=== PATIENT | female | born 1950 | race Caucasian/White ===

== ENCOUNTER 2018-07-06 12:21 | Inpatient (IN) | payer MEDICARE, OTHER ==
[~2018-07-06 12:21] MED LIST: Iopamidol 370 76% 100 ML VIAL ONE
[2018-07-06] MEDS ORDERED: PHENYLEPHRINE-NS 100 MCG/ML 10 ML SYRINGE ONE (12:37)
[2018-07-06] MEDS ORDERED: Lidocaine 1% PF 5 ML VIAL ONE (12:37)
[2018-07-06] MEDS ORDERED: PROPOFOL 200 MG/20 ML VIAL ONE (12:37)
[2018-07-06] MEDS ORDERED: Succinylcholine Chloride 20 MG/ML 10 ml SYRINGE FS ONE (12:37)
[2018-07-06 12:41] LABS: #Eosinphils 0.8 thou/uL (0.0-0.7); #Lymphocytes 1.8 thou/uL (1.20-3.40); #Monocytes 1.1 thou/uL (0.11-0.59); #Neutrophils 8.2 thou/uL (1.40-6.50); %Basophils 0.4 % (0.0-1.0); %Eosinophils 6.9 % (0.0-10.0); %Lymphocytes 15.2 % (21.0-51.0); %Monocytes 9.4 % (0.0-10.0); %Neutrophils 68.1 % (42.0-75.0); Hemoglobin 13.4 g/dL (12.0-16.0); Mean Corpuscular HGB CONC 32.5 g/dL (32.0-36.0); Mean Corpuscular Hemoglobin 29.2 pg (27.0-31.0); Mean Corpuscular Volume 89.9 fL (78.0-98.0); Mean Platelet Volume 6.3 fL (7.4-10.4); Platelet Count 199 thou/uL (130-400); RBC Distribution Width 12.4 % (11.5-14.5); White Blood Cell (WBC) Count 12.1 thou/uL (4.8-10.8)
[2018-07-06 12:45] LABS: INR-International Normal Ratio 1.1; PTT 23.2 SEC (22.9-36.1); Prothrombin Time 14.2 SEC (12.0-14.7)
[2018-07-06 13:05] LABS: ALT (SGPT) 33 U/L (8-55); AST (SGOT) 32 U/L (5-34); Alkaline Phosphatase 123 U/L (40-150); Anion Gap 13 mmol/L (10-20); BUN (Urea Nitrogen) 12 mg/dL (9.8-20.1); Bilirubin, Total 0.5 mg/dL (0.2-1.2); Calc. Creatinine Clearance 0 mL/min (70-130); Calcium 9.2 mg/dL (7.8-10.44); Carbon Dioxide 25 mmol/L (23-31); Chloride 104 mmol/L (98-107); Estimated GFR-MDRD 55; Globulin 3.5 g/dL (2.4-3.5); Glucose 110 mg/dL (80-115); Potassium 4.2 mmol/L (3.5-5.1); Protein, Total 7.5 g/dL (6.0-8.3); Sodium 138 mmol/L (136-145)
--- NOTE | 2018-07-06 13:16 | CT ---
BRAIN CT WITHOUT IV CONTRAST: Date: 07/06/18 HISTORY: 67-year-old female with history of stroke alert, left-sided paralysis, facial droop, slurred speech. FINDINGS: Minimal motion artifact. No focal mass or midline shift. No intra or extra-axial hemorrhage. IMPRESSION: Minimal motion artifact. Mild atrophy and chronic white matter ischemic change. No mass, bleed, or ot her acute process. Findings discussed with Dr. Kimball in the emergency room at 1235 hours. CODE CR. POS: [facility]
[2018-07-06] MEDS ORDERED: Heparin 10,000 UNITS/1 ML VIAL ONE (13:17)
[2018-07-06] MEDS ORDERED: Lidocaine 1% (PF) 30 ML VIAL ONE ×2 (13:17→13:26)
--- NOTE | 2018-07-06 13:36 | RAD ---
CHEST ONE VIEW: History: Altered mental status. Weakness. FINDINGS: No comparison. Cardiac silhouette is magnified by projection. Pulmonary vasculature upper limits of normal. Mediasti num is midline with aortic calcification. No lobar consolidation or evidence of pneumothorax. laboratory monitor leads overlie the chest. IMPRESSION: Atherosclerosis. POS: [facility]
--- NOTE | 2018-07-06 14:01 | CT ---
HEAD CT ANGIOGRAM WITH 3D RENDERING NECK CT ANGIOGRAM WITH 3D RENDERING: Date: 07/06/18 HISTORY: 67-year-old female with left-sided paralysis, facial droop, slurred speech. Last seen normal 45 minut es ago. FINDINGS: HEAD CT ANGIOGRAM: There is a major branch occlusion of one of the right M2 segment branches approximately 1.0 cm distal to the first trifurcation branch off the right middle cerebral artery. The vertebrobasilar system ap pears unremarkable. Left middle cerebral and anterior cerebral arteries are unremarkable. IMPRESSION: Major branch occlusion involving a right middle cerebral artery branch approximately 1.0 cm distal to the first trifurcation branch off the right middle cerebral artery. NECK CT ANGIGORAM: Right and left vertebral artery origins are unremarkable. No evidence for an acute artery significant stenosis or occlusion. Small calcified plaques involving the right distal common carotid artery and at the origin of the right internal carotid artery, but no hemodynamically significant stenosis using NASCET criteria. No evidence for neck soft tissue mass or abnormal fluid collection. IMPRESSION: Several small calcified plaques involving the distal right CCA and proximal right ICA, but no hemodyn amically significant stenosis using NASCET criteria. Unremarkable left carotid. Unremarkable vertebra l arteries bilaterally. Findings were discussed with Dr. Dayo Reeves at approximately 1310 hours. CODE CR. POS: [facility]
[2018-07-06] MEDS ORDERED: ISOVUE-370 76%-LOCM 1 ML ONE (14:09)
[2018-07-06] MEDS ORDERED: Communication Order-Pharmacy FS SCH (14:28)
--- NOTE | 2018-07-06 15:13 | PRG ---
DATE OF SERVICE: 07/06/2018. SUBJECTIVE: Ms. Kat is a 67-year-old female that experienced the abrupt onset of dense left hemipa resis with associated facial droop. She was brought to the ER where she underwent a noncontrast head CT, which was negative for hemorrhage. She was immediately given IV TPA. Subsequent to that time, she underwent CT angiography which revealed a branch occlusion of the distal aspect of the right midd le cerebral artery. There was paucity of blood flow within the deep white matter areas of the right cerebral hemisphere. The patient was then emergently taken to the laboratory chief where she underwent mechanical thrombectomy. M echanical thrombectomy was successful in opening up the branch occlusion. She appears to have normal samaritan of flow. The plan will be admission to the ICU. I have spoken to the Pulmonary and Cri tical Care team, will be working to wean her off the ventilator as soon as possible. I have also spo mark to the nurse who will be taken care of her. She has a sheath in place and that will need to kya in in place for at least 12 hours secondary to IV TPA administration. I have also consulted the Hosp italist Service, so they can resume medical management and appropriate stroke workup.
[2018-07-06] MEDS ORDERED: NICARDIPINE IVPB SCH (15:30)
[2018-07-06] MEDS ORDERED: NACL IVPB SCH (15:30)
[2018-07-06] MEDS ORDERED: niCARdipine 40MG In NaCl 40 MG/200 ML BAG IVPB SCH (15:45)
[2018-07-06 15:50] LABS: Actual Bicarbonate (HCO3a) 17.4 mEq/L (22-28); Base Excess (BEa) -5.9 mEq/L (-2.0 to +3.0); CO2 Tension 28.6 mmHg (35.0-45.0); Carboxyhemoglobin (COHb) 0.9 gm% (0.0-3.0); Hemoglobin (Hb) 13.1 g/dL (12.0-16.0); O2 Tension (PaO2) 108.8 mmHg (> 80.0)
[2018-07-06 15:51] LABS: Puncture Site ALINE
[2018-07-06] MEDS: niCARdipine HCl 25 MG in Sodium Chloride 0.9% 250 ML 240 ML IVPB SCH ×2 (16:02→20:15)
[2018-07-06] MEDS: Cefepime 1 GM in Sodium Chloride 0.9% 100 ML IVPB SCH (16:56)
--- NOTE | 2018-07-06 19:09 | PDOC.PN ---
- Subjective Encounter Start Date: 07/06/18 Encounter Start Time: 19:08 Pt seen for management of medical comorbidities, currently admitted for acute ischemic stroke. Pt intubated, able to answer questions by nodding or shaking head. Denies chest pain, shortness of breath or headache. No nausea. - Objective MAR Reviewed: Yes Vital Signs & Weight: Vital Signs (12 hours) Temp Pulse Resp BP Pulse Ox 07/06/18 16:00 99.3 F 19 07/06/18 15:11 98 160/67 H 07/06/18 15:10 98.3 F 99 16 99 07/06/18 14:59 98.3 F Weight Weight 169 lb 15.622 oz Most Recent Monitor Data Heart Rate from ECG 115 NIBP 129/71 NIBP BP-Mean 85 Respiration from ECG 15 SpO2 100 I&O: 07/05/18 07/06/18 07/07/18 06:59 06:59 06:59 Intake Total 175.2 Output Total 1800 Balance -1624.8 Result Diagrams: 07/06/18 12:27 07/06/18 12:27 Additional Labs: Accuchecks 07/06/18 12:24 POC Glucose 99 EKG Reviewed by me: Yes (Tele: NSR) Phys Exam - Physical Examination Intubated HEENT: moist MMs Respiratory: clear to auscultation bilateral Cardiovascular: RRR Gastrointestinal: soft Psychiatric: normal affect Dx/Plan (1) Acute right MCA stroke Code(s): I63.511 - CEREB INFRC D/T UNSP OCCLS OR STENOS OF RIGHT MID CEREB ART Status: Acute Comment: s/p tPA, [facility] procedure, in CCU. Cardene drip for blood pressure (2) Anxiety disorder Code(s): F41.9 - ANXIETY DISORDER, UNSPECIFIED Status: Chronic Comment: Pt takes trazodone for anxiety disorder. Will reassess when she can take oral meds. - Plan * . Obtain external records Review of Systems - Medications/Allergies Allergies/Adverse Reactions: Allergies Allergy/AdvReac Type Severity Reaction Status Date / Time Unable to Assess Allergy Verified 07/06/18 14:45 Medications: Current Medications Famotidine (Pepcid) 20 mg SLOW IVP BID [facility] Cefepime HCl 1 gm/ Sodium (Chloride) 100 mls @ 200 mls/hr IVPB 0400,1600 [facility] Last Admin: 07/06/18 16:56 Dose: 100 mls Nicardipine HCl 25 mg/ Sodium (Chloride) 250 mls @ 0 mls/hr IVPB INF [facility]; Protocol Last Admin: 07/06/18 16:02 Dose: 250 mls Miscellaneous Information (Communication Order-Pharmacy) 1 each FS [facility] Stop: 07/07/18 14:29
[2018-07-06] MEDS: Famotidine/PF 20 mg/2ml Vial SLOW IVP SCH (21:27)
[2018-07-06] MEDS ORDERED: Propofol 1,000 MG/100 ML VIAL IV PRN (21:58)
[2018-07-06] MEDS ORDERED: Propofol BOLUS 1,000 MG/100 ML VIAL IV PRN (21:58)
[2018-07-06] MEDS ORDERED: levETIRAcetam In NaCl (Iso-Os) 1,000 MG in Premix Bag 1 BAG IVPB SCH (22:00)
--- NOTE | 2018-07-06 22:24 | CT ---
NONCONTRAST CT HEAD: 07/06/18 HISTORY: Altered mental status. COMPARISON: 07/07/18 FINDINGS: There is a round area of increased density related to parenchymal hemorrhage seen within the right an terior lateral frontal lobe at the level of and just superior to the lateral ventricles measuring 1.8 cm. There is a small amount of adjacent subarachnoid hemorrhage also present. There is questionable minimal subarachnoid hemorrhage in the left anterior frontal lobe superiorly, but this may be artifac tual. No additional intraparenchymal or extra-axial hemorrhage is seen. There is no mass effect or mi dline shift. No acute cortical infarction is seen. Ventricular system is normal in size, shape, and p osition. No other interval change. IMPRESSION: 1. Newly developed area of parenchymal hemorrhage within the right anterior frontal lobe with ad jacent small amount of subarachnoid hemorrhage. Findings may be related to recent treatment TPA administration. Follow up recommended. 2. Above findings discussed with Dr. Roxanne Parker on 07/06/18 at 2107 hours. POS: [facility]
[2018-07-06] MEDS: niCARdipine HCl 25 MG in Sodium Chloride 0.9% 250 ML 240 ML IVPB PRN (23:42)
[2018-07-07] MEDS: niCARdipine HCl 25 MG in Sodium Chloride 0.9% 250 ML 240 ML IVPB PRN ×3 (01:16→08:52)
--- NOTE | 2018-07-07 01:55 | CON ---
DATE OF CONSULTATION: 07/06/2018 HISTORY OF PRESENT ILLNESS: A 67-year-old female, unable to give any history. She is intubated, rec eived a paralytic and some propofol in the laboratory analyst. She underwent an emergency procedure for an acu te left hemiparesis started with the facial droop. A CT head that was negative for hemorrhage. She was given IV TPA, underwent a CT angiogram which rev ealed a branch occlusion of the distal aspect of her right middle cerebral artery. decreased b lood flow, emergency laboratory analyst by Dr. Reeves, neurosurgeon, and underwent mechanical thrombectomy. This was successful as per his note. She is now in the ICU, intubated on the vent. She has sheath to stay in place for 12 hours following her TPA. I was contacted by Dr. Reeves to manage the patient's vent settings. The patient's sister from [place] is coming here. The patient's brother from [place] is co dexter here. We are unable to get any additional medical history from anybody at this time. Additionally to note, it appears patient has not been in this hospital, I see no other records. She h as one outpatient note, unknown status. She lives alone. She has no kids, no . Father . PAST SURGICAL HISTORY: Unknown. PAST MEDICAL HISTORY: Unknown. CHRONIC MEDICATIONS: Unknown. ALLERGIES: Unknown. ALCOHOL AND TOBACCO: Unknown. REVIEW OF SYSTEMS: Unobtainable. Please note, we will get additional information as family members arrive. PHYSICAL EXAMINATION: GENERAL: Presently, she is in the ICU, intubated on the vent. VITAL SIGNS: Saturations are 100% on 30% FiO2, respirations 20, pulse 88, blood pressure 160/70. CHEST: No wheezing or crackles. CARDIAC: Normal S1, S2. No gallops. ABDOMEN: Soft. No masses. LABORATORY DATA AND IMAGING: Initial lab, white count of 12,000, no left shift. Platelet count is n ormal. Electrolytes are normal. Initial chest x-ray prior to intubation shows no acute infiltrates. IMPRESSION: 1. Status post left-sided cerebrovascular accident with emergency mechanical thrombectomy of her rig ht middle cerebral artery. 2. Status post TPA. PLAN: We will continue vent support for the time being. We will wean when stable. I am going to em pirically put her on some antibiotics until we assess her pulmonary status since apparently she vomit ed several times . In fact, family members say she was found down at home with vomitus all over her. We will wean the vent when she is much more stable. Deep venous thrombosis prophylaxis, proton pump inhibitors and aspirin. Critical care time 45 minutes.
[2018-07-07] MEDS: Cefepime 1 GM in Sodium Chloride 0.9% 100 ML IVPB SCH ×2 (03:06→15:54)
[2018-07-07 07:09] LABS: pH, Arterial 7.41 (7.35-7.45)
[2018-07-07 07:10] LABS: Actual Bicarbonate (HCO3a) 21.4 mEq/L (22-28); Base Excess (BEa) -2.7 mEq/L (-2.0 to +3.0); CO2 Tension 34.9 mmHg (35.0-45.0); Carboxyhemoglobin (COHb) 0.7 gm% (0.0-3.0); Hemoglobin (Hb) 12.4 g/dL (12.0-16.0); O2 Tension (PaO2) 103.7 mmHg (> 80.0); Potassium - ABG Lab 3.8 mmol/L (3.70-5.30); Puncture Site ALINE
[2018-07-07 07:11] LABS: ALV-art Gradient 66.575 (0-20)
[2018-07-07 08:12] LABS: Hemoglobin 11.8 g/dL (12.0-16.0); Mean Corpuscular HGB CONC 33.7 g/dL (32.0-36.0); Mean Corpuscular Volume 88.9 fL (78.0-98.0); Mean Platelet Volume 6.4 fL (7.4-10.4); Platelet Count 177 thou/uL (130-400); RBC Distribution Width 12.4 % (11.5-14.5); Red Blood Cell (RBC) Count 3.94 mill/uL (4.20-5.40); White Blood Cell (WBC) Count 15.8 thou/uL (4.8-10.8)
--- NOTE | 2018-07-07 08:13 | PRG ---
DATE OF SERVICE: 07/07/2018 This morning she remains encephalopathic on the vent. PHYSICAL EXAMINATION: VITAL SIGNS: Pulse is 100, temperature is 99, sats are 99%, blood pressure 140/50. She is on low do se Cardene. She moves all 4 extremities, but she is unresponsive to verbal communication. HEENT: Pupils are 2 mm and reactive. CHEST: Chest reveals decreased breath sounds, minimal rhonchi. CARDIAC: Normal S1, S2. ABDOMEN: Soft, no masses. LABORATORY: PO2 is 103, pCO2 35, pH 7.45 on 30%, rate of 10. Electrolytes are normal. She had a CT brain at midnight, which showed a right temporal lobe hemorrhage. IMPRESSION: 1. Status post emergency mechanical thrombectomy, right middle carotid artery. 2. Status post tissue plasminogen activator. 3. Right temporal hemorrhage. 4. Encephalopathy. 5. Hypertension. PLAN: Maxipime for presumed aspiration pneumonia. Otherwise, supportive care. We will wean when stable. Control blood pressure. One-half hour critical care time.
[2018-07-07 08:44] LABS: Anion Gap 12 mmol/L (10-20); BUN (Urea Nitrogen) 11 mg/dL (9.8-20.1); Calc. Creatinine Clearance 87 mL/min (70-130); Calcium 7.8 mg/dL (7.8-10.44); Carbon Dioxide 21 mmol/L (23-31); Chloride 112 mmol/L (98-107); Cholesterol 159 mg/dl (< 200 Desired); Estimated GFR-MDRD 75; Glucose 114 mg/dL (80-115); HDL Cholesterol 40 mg/dL (>60 Neg Risk); LDL Cholesterol, Calculated 100 mg/dL; Sodium 141 mmol/L (136-145); Triglycerides 93 mg/dL (Less than 150)
[2018-07-07 08:55] LABS: Band 28 % (5-11); Eosinophils 3 % (0-10); Lymphocytes 9 % (21-51); MDiff Complete? YES; Monocytes 8 % (0-10); Neutrophil 51 % (42-75); RBC Morphology Normal; Reactive Lymphocytes 1 % (0-10)
[2018-07-07] MEDS: Famotidine/PF 20 mg/2ml Vial SLOW IVP SCH ×2 (08:56→20:39)
--- NOTE | 2018-07-07 10:07 | RAD ---
CHEST 1 VIEW: Date: 07/07/18 HISTORY: 67-year-old female with history of respiratory insufficiency. COMPARISON: 07/06/18. FINDINGS: NG tube and endotracheal tubes are in position. Monitor leads overlie the chest. Heart size is within normal limits. No confluent pneumonia, overt edema, or pleural effusion. There is some mild vascular congestion. IMPRESSION: Mild stable bilateral vascular congestion. No confluent pneumonia or other acute process. Continue sh ort-term follow-up. POS: [facility]
[2018-07-07] MEDS ORDERED: DC Sedation Protocol FS ONE (12:16)
--- NOTE | 2018-07-07 12:37 | PRG ---
DATE OF SERVICE: 07/07/2018 Ms. Kat is now 1 day status post t-PA and mechanical thrombectomy for a distal right MCA branch occ lusion. She has had a fluctuating exam over the past 24 hours. She has had 2 head CTs performed sin ce her procedure, the first of which revealed a hemorrhagic conversion within the right hemisphere. This was a relatively small hemorrhage that is stable in size as compared to the repeat CT examinatio n performed this morning. I visited with her this morning in the ICU and she is clearly awake and alert. She is spontaneously moving the left side which is also clear improvement as compared to her baseline status as evaluated in the ER. I do believe that she will continue to recover. I do not foresee any need for interventi on with respect to this hemorrhage. I have asked our pulmonary colleagues to aggressively wean and p otentially extubate her today. She will need aggressive PT, OT and physical therapy and inpatient re habilitation. I am optimistic with Mrs. Kat's improvement. I appreciate the assistance from a Pulmonary Critical Care as well as our Hospitalist Service. My plan is to transition her to our Hospitalist Service as her attending care team.
--- NOTE | 2018-07-07 12:42 | PDOC.PN ---
- Subjective Encounter Start Date: 07/07/18 Encounter Start Time: 11:45 Subjective: on vent, off sedation -: does not respond to verbal stimuli but is awake - Objective MAR Reviewed: Yes Vital Signs & Weight: Vital Signs (12 hours) Temp Pulse Resp BP Pulse Ox 07/07/18 12:00 19 07/07/18 10:39 102 H 123/46 L 07/07/18 10:00 11 L 07/07/18 08:00 14 07/07/18 07:23 99.3 F 105 H 19 99 07/07/18 07:00 99.3 F 07/07/18 06:59 104 H 130/55 L 07/07/18 06:00 10 L 07/07/18 04:00 99.9 F H 10 L 07/07/18 02:00 11 L 07/07/18 01:00 99.9 F H Weight Weight 166 lb 10.711 oz Most Recent Monitor Data Heart Rate from ECG 104 NIBP 110/55 NIBP BP-Mean 76 Respiration from ECG 14 SpO2 98 I&O: 07/06/18 07/07/18 07/08/18 06:59 06:59 06:59 Intake Total 1660.2 0 Output Total 3070 305 Balance -1409.8 -305 Result Diagrams: 07/07/18 08:00 07/07/18 08:00 Phys Exam - Physical Examination HEENT: moist MMs, sclera anicteric Neck: no JVD, supple Respiratory: no wheezing, no rales Cardiovascular: RRR, no significant murmur Gastrointestinal: soft, non-tender, positive bowel sounds Musculoskeletal: no edema, pulses present Neurological: moves all 4 limbs Dx/Plan (1) Acute right MCA stroke Code(s): I63.511 - CEREB INFRC D/T UNSP OCCLS OR STENOS OF RIGHT MID CEREB ART Status: Acute Comment: s/p tPA, [facility] procedure, in CCU. Cardene drip for blood pressure (2) ICH (intracerebral hemorrhage) Code(s): I61.9 - NONTRAUMATIC INTRACEREBRAL HEMORRHAGE, UNSPECIFIED Status: Acute Qualifiers: Intracerebral hemorrhage etiology: nontraumatic Laterality: right Comment: right frontal lobe, small hemorrhage (3) Acute respiratory failure Code(s): J96.00 - ACUTE RESPIRATORY FAILURE, UNSP W HYPOXIA OR HYPERCAPNIA Status: Acute Qualifiers: Respiratory failure complication: hypoxia Qualified Code(s): J96.01 - Acute respiratory failure with hypoxia (4) PNA (pneumonia) Code(s): J18.9 - PNEUMONIA, UNSPECIFIED ORGANISM Status: Acute Qualifiers: Pneumonia type: aspiration pneumonia (5) Dyslipidemia Code(s): E78.5 - HYPERLIPIDEMIA, UNSPECIFIED Status: Chronic (6) Anxiety disorder Code(s): F41.9 - ANXIETY DISORDER, UNSPECIFIED Status: Chronic Qualifiers: Anxiety disorder type: unspecified anxiety disorder Qualified Code(s): F41.9 - Anxiety disorder, unspecified Comment: Pt takes trazodone for anxiety disorder. Will reassess when she can take oral meds. - Plan weaning when more awake and following verbal stimuli -: is on cefepime for suspected asp pna -: on keppra for seizure prophylaxis -: gentle iv hydration, wbc 15 likely due to margination -: is seen moving all extremities * . Review of Systems - Medications/Allergies Allergies/Adverse Reactions: Allergies Allergy/AdvReac Type Severity Reaction Status Date / Time Unable to Assess Allergy Verified 07/06/18 14:45 Medications: Current Medications Famotidine (Pepcid) 20 mg SLOW IVP BID [facility] Last Admin: 07/07/18 08:56 Dose: 20 mg Cefepime HCl 1 gm/ Sodium (Chloride) 100 mls @ 200 mls/hr IVPB 0400,1600 [facility]ECTOR Last Admin: 07/07/18 03:06 Dose: 100 mls Levetiracetam 500 mg/ Device 100 mls @ 200 mls/hr IVPB Q12HR [facility] Last Admin: 07/07/18 08:53 Dose: 100 mls Nicardipine HCl 25 mg/ Sodium (Chloride) 250 mls @ 0 mls/hr IVPB INF PRN; Protocol PRN Reason: TO KEEP SBP < 150 Last Admin: 07/07/18 08:52 Dose: 250 mls Miscellaneous Information (Communication Order-Pharmacy) 1 each FS ASDIR [facility] Stop: 07/07/18 14:29 Sodium Chloride (Flush - Normal Saline) 10 ml IVF Q12HR [facility]ECTOR Last Admin: 07/07/18 08:56 Dose: 10 ml Sodium Chloride (Flush - Normal Saline) 10 ml IVF PRN PRN PRN Reason: Saline Flush
--- NOTE | 2018-07-07 12:47 | CT ---
PRELIMINARY REPORT/[facility]/EMERGENTY AFTER-HOURS PROCEDURE CT Head Without Intravenous Contrast: CLINICAL HISTORY: 67 years old, female; Follow up CVA TECHNIQUE: Axial computed tomography images of the head/brain without intravenous contrast. COMPARISON: CT head 07/06/2018 at 2043 hrs. FINDINGS: Brain: Compared to the prior CT head dated 07/06/2018, no change in approximate 2.0 x 1.7 cm of acute intraparenchymal hemorrhage within the mid right parietal lobe. No change in small amount of subarac hnoid blood within adjacent right parietal lobe cortical sulcal markings. Ventricles: Unremarkable. No ventriculomegaly. Bones/joints: Unremarkable. No acute fracture. Soft tissues: Unremarkable. Sinuses: Minimal partial ethmoid sinusitis. Right sphenoid sinus mild mucoperiosteal thickening. Mastoid air cells: Unremarkable as visualized. No mastoid effusion. IMPRESSION: Compared to the prior CT head dated 07/06/2018, no interval change in approximate 2.0 x 1.7 cm of acu te intraparenchymal hemorrhage within the mid right parietal lobe with adjacent small amount of subar achnoid blood within adjacent superior right parietal lobe cortical sulcal markings. Thank you for allowing us to participate in the care of your patient. Dictated and Authenticated by: Conrad Flores MD 07/07/2018 4:48 AM Central Time ([place] & [place]) FINAL REPORT HEAD CT WITHOUT CONTRAST: COMPARISON: 07/06/18 at 8:43 p.m. HISTORY: CVA. Followup exam. FINDINGS: This report is in agreement with the preliminary report by [facility]. Stable intraparenchymal hemorrhage i n the right temporal lobe. Stable subarachnoid blood involving the sulci along the right frontal lob e. POS: [facility]
--- NOTE | 2018-07-07 13:45 | CON ---
DATE OF CONSULTATION: 07/06/2018 REFERRING PROVIDER: Yaw Reeves M.D. REASON FOR CONSULTATION: Acute left hemiparesis, stroke alert post-TPA. HISTORY OF PRESENT ILLNESS: Ms. Kat is a pleasant 67-year-old female, who is being consulted for evaluation of acute onset left-sided weakness and stroke alert post-TPA. History is obtained from patient's medical chart as the patient is unable to provide and there are no family members present at bedside. Apparently, the patient was noticed by family members to have sudden onset of left-sided weakness. She was brought to the [place] [facility] within 45 minutes at the onset of symptoms. On arrival to the emergency room, she was noted to have stroke-like symptoms and stroke alert was initiated. She was given IV TPA. She had a CT angiogram of the head and neck done, which had shown major branch occlusion involving the right middle cerebral artery. For this reason, she has undergone clot retrieval thrombectomy. She is now post IV TPA as well as mechanical thrombectomy. I am being asked to further assess this patient. PAST MEDICAL HISTORY: Could not be obtained. PAST SURGICAL HISTORY: Could not be obtained. FAMILY HISTORY: Could not be obtained. SOCIAL HISTORY: Could not be obtained. CURRENT MEDICATIONS: Could not be obtained. ALLERGIES: Could not be obtained. REVIEW OF SYSTEMS: Unable to perform. PHYSICAL EXAMINATION: VITAL SIGNS: Blood pressure of 140/69, pulse of 107, temperature of 101.3, respirations of 22, O2 sats of 98% on mechanical ventilation. GENERAL: Intubated female, in no apparent distress. RESPIRATORY: Clear to auscultation bilaterally. CARDIOVASCULAR: Regular rate and rhythm. NEUROLOGIC: Mental status: The patient is intubated. She is able to follow commands and able to appropriately nod her head yes and no. Speech and language : Unable to assess. Cranial nerves: Pupils are 3 mm and reactive. Visual reed are full to threat. External muscles are intact. No nystagmus is noted. Face appears symmetric. Motor exam showed normal tone and bulk with a 5 /5 strength in both upper and lower extremities. She is able to hold her arms outstretched for more than 10 seconds on both sides. She was able to hold her both legs up without a drift for more than 5 seconds. Sensory: Sensation is intact to light touch. Gait, Romberg, coordination could not be tested. LABORATORY DATA: Labs are reviewed, which included CBC, CMP, which is significant for WBC of 12.1, otherwise unremarkable. IMAGING STUDIES: CT head without contrast was reviewed, which showed no acute intracranial abnormality. CT angiogram of the head and neck was reviewed, right middle cerebral artery occlusion. IMPRESSION: 1. Acute right middle cerebral artery distribution ischemic infarct. 2. Right middle cerebral artery embolus. 3. Left hemiparesis, likely due to #1. ASSESSMENT AND PLAN: Ms. Kat is a 67-year-old female, who presented with an acute onset left-sided weakness. She is now status post IV TPA and mechanical thrombectomy. There is a significant improvement in her strength, post-TPA and mechanical thrombectomy. At this time, I would recommend continuing close monitoring for neurological function. I will recommend holding off any antiplatelet or anticoagulation therapy for at least 24 hours post-TPA. She will need to be closely monitored for any neurological changes. If there is any change in her neurological function, then stat CT head should be performed. Continue current medical management. Thank you for consultation. ELIEL
[2018-07-07] MEDS ORDERED: Lorazepam 2 MG/ML VIAL ONE (20:28)
--- NOTE | 2018-07-07 20:36 | CCL ---
DATE: 07/06/18 SURGEON: Yaw Reeves M.D. MAXILLOFACIAL PATHOLOGY: None. INDICATION: Thrombus with stroke. DIAGNOSIS: Right MCA division thrombus with occlusion. ANESTHESIA: General. PROCEDURE: Cerebral angiography with mechanical thrombectomy using Trevo technique The patient was brought to the angiogram suite and placed under general anesthesia. Both groins were prepped and draped in usual sterile fashion. 1% lidocaine was used to inject the right groin. A 5 Greek micropuncture set was used to gain access to right common femoral artery. Using Seldinger emigdio hnique, the needle was removed and an 8 Greek sheath was placed. An [address] passed over 125 cm [email or web address] catheter which was passed over a [employer] wire was then advanced int o the aortic arch where the right internal carotid artery was selectively catheterized. Angiogram wa s performed which revealed thrombus in the distal aspect of the right middle cerebral artery. There was occlusion of at least one of the branches of the trifurcation. The Trevo device was deployed a t otal of two times. With the second deployment, there was confucianism of flow into the hemisphere on the right side. There appeared to be a small degree of nonocclusive thrombus present within the midd le cerebral artery. The patient also was given IV TPA before the procedure started. IMPRESSION: The patient underwent successful angiography. The patient also underwent successful mechanical throm bectomy with confucianism of flow distally with TICI score of equal to three. The procedure came to an end without known complication. The sheath was sewn into place secondary to IV TPA administration.
--- NOTE | 2018-07-07 21:47 | PRG ---
DATE OF SERVICE: 07/07/2018 SUBJECTIVE: Ms. Kat is a pleasant 67-year-old female who presented with an acute-onset left hemiparesis. She is now status post IV TPA and clot retrieval with mechanical thrombectomy. She had an episode of worsening weakness on her left side, for which a stat CT head was obtained by me. It did show hemorrhagic conversion with intraparenchymal hemorrhage in the right temporal lobe and subarachnoid blood involving the sulci of the right frontal lobe. Today, patient's nurse reports that patient was able to extubate without any difficulty. Since being extubated, she has been extremely confused and combative. She is nonverbal. She is moving both upper and lower extremities without any difficulty. OBJECTIVE: VITAL SIGNS: Blood pressure of 132/63, pulse of 111, temperature of 98.6, respirations of 33, O2 sats of 100% on room air. GENERAL: Well-developed, well-nourished female in no apparent distress. RESPIRATORY: Clear to auscultation bilaterally. CARDIOVASCULAR: Regular rate and rhythm. NEUROLOGICAL: Mental status: Patient is awake and alert, but nonconversant. She does not follow any commands. Face appears symmetric. She is moving both upper and lower extremities spontaneously without any drift in both upper extremities. Sensory, she withdraws to noxious stimuli. IMAGING STUDIES: CT head without contrast was reviewed, which showed intraparenchymal and subarachnoid hemorrhage post-TPA. IMPRESSION: 1. Acute right middle cerebral artery distribution ischemic infarct. 2. Right middle cerebral artery thrombus, status post mechanical thrombectomy. 3. Hemorrhagic transformation post-TPA. ASSESSMENT AND PLAN: Ms. Kat is a pleasant 67-year-old female who presented with an acute-onset left hemiparesis. She underwent IV TPA as well as endovascular therapy. She has noted improvement in her strength; however, she has become aphasic. Her CT scan done yesterday did show intraparenchymal subarachnoid hemorrhage. For this reason, we will hold off on starting any antiplatelet or anticoagulation therapy. She has been evaluated by Speech, Occupational therapy as well as physical therapy. I would recommend following up with Neurosurgery recommendations for recent intracerebral hemorrhage and subarachnoid hemorrhage post-TPA. Continue supportive care. Continue current medical management. ELIEL
[2018-07-08] MEDS: Cefepime 1 GM in Sodium Chloride 0.9% 100 ML IVPB SCH ×2 (03:15→16:21)
[2018-07-08 05:34] LABS: Anion Gap 15 mmol/L (10-20); BUN (Urea Nitrogen) 14 mg/dL (9.8-20.1); Calc. Creatinine Clearance 82 mL/min (70-130); Calcium 8.4 mg/dL (7.8-10.44); Carbon Dioxide 20 mmol/L (23-31); Chloride 111 mmol/L (98-107); Estimated GFR-MDRD 70; Glucose 88 mg/dL (80-115); Potassium 3.8 mmol/L (3.5-5.1); Sodium 142 mmol/L (136-145)
[2018-07-08 06:03] LABS: Band 9 % (5-11); Lymphocytes 16 % (21-51); MDiff Complete? YES; Mean Corpuscular HGB CONC 33.1 g/dL (32.0-36.0); Mean Corpuscular Hemoglobin 29.8 pg (27.0-31.0); Mean Corpuscular Volume 89.9 fL (78.0-98.0); Mean Platelet Volume 6.6 fL (7.4-10.4); Monocytes 3 % (0-10); Neutrophil 72 % (42-75); PLT Morphology Comment Appears Adequate; Platelet Count 194 thou/uL (130-400); RBC Distribution Width 12.4 % (11.5-14.5); RBC Morphology Normal; Red Blood Cell (RBC) Count 4.02 mill/uL (4.20-5.40); White Blood Cell (WBC) Count 15.7 thou/uL (4.8-10.8)
[2018-07-08] MEDS: Famotidine/PF 20 mg/2ml Vial SLOW IVP SCH ×2 (08:09→20:11)
--- NOTE | 2018-07-08 08:16 | PRG ---
DATE OF SERVICE: 07/08/2018 This morning, she is in no respiratory distress. Unfortunately, there is not much verbal communicati on. PHYSICAL EXAMINATION: VITAL SIGNS: Blood pressure 128/66, sats 100% on room air, respiration rate 16. She is afebrile, te mperature is 99. CHEST: Chest revealed decreased breath sounds, no wheezing. CARDIAC: Normal S1, S2, no gallops. ABDOMEN: Soft. No masses. Chest x-ray shows no acute infiltrates. LABORATORY: White count 15,000, H&H 12 and 37, platelet count 95. Electrolytes are normal. IMPRESSION: 1. Status post cerebrovascular accident with left-sided weakness, status post emergency mechanical t hrombectomy. 2. Status post tissue plasminogen activator. 3. Right parietal intraparenchymal hemorrhage. 4. Encephalopathy. PLAN: Continue observation in the ICU. When she is able to swallow, switch her over to oral antibio tics. I will follow.
--- NOTE | 2018-07-08 09:13 | RAD ---
CHEST 1 VIEW: Date: 07/08/18 HISTORY: Ventilated patient. COMPARISON: Radiograph prior day. FINDINGS: Patient has been extubated and enteric tube has been removed. Small right effusion and right basilar atelectasis. No acute osseous abnormality. IMPRESSION: Unremarkable exam. POS: [facility]
--- NOTE | 2018-07-08 11:13 | PDOC.PN ---
- Subjective Encounter Start Date: 07/08/18 Encounter Start Time: 10:00 Subjective: awake, trying to get out of bed, not oriented - Objective MAR Reviewed: Yes Vital Signs & Weight: Vital Signs (12 hours) Temp Pulse BP Pulse Ox Pulse Ox 07/08/18 08:46 119 H 133/72 100 07/08/18 08:14 100 07/08/18 08:00 99.1 F 07/08/18 03:00 99.2 F Weight Weight 167 lb 1.766 oz Most Recent Monitor Data Heart Rate from ECG 116 NIBP 147/73 NIBP BP-Mean 90 Respiration from ECG 21 SpO2 100 I&O: 07/07/18 07/08/18 07/09/18 06:59 06:59 06:59 Intake Total 1660.2 982 Output Total 3070 1230 72 Balance -1409.8 -248 -72 Result Diagrams: 07/08/18 04:51 07/08/18 04:51 Phys Exam - Physical Examination HEENT: sclera anicteric dry mucosa Neck: no JVD, supple Respiratory: no wheezing, no rales Cardiovascular: RRR, no significant murmur Gastrointestinal: soft, non-tender, positive bowel sounds Musculoskeletal: no edema, pulses present Neurological: non-focal, moves all 4 limbs Dx/Plan (1) Acute right MCA stroke Code(s): I63.511 - CEREB INFRC D/T UNSP OCCLS OR STENOS OF RIGHT MID CEREB ART Status: Acute Comment: s/p tPA, [facility] procedure, in CCU. Cardene drip for blood pressure (2) ICH (intracerebral hemorrhage) Code(s): I61.9 - NONTRAUMATIC INTRACEREBRAL HEMORRHAGE, UNSPECIFIED Status: Acute Qualifiers: Intracerebral hemorrhage etiology: nontraumatic Laterality: right Comment: right frontal lobe, small hemorrhage (3) Acute respiratory failure Code(s): J96.00 - ACUTE RESPIRATORY FAILURE, UNSP W HYPOXIA OR HYPERCAPNIA Status: Resolved Qualifiers: Respiratory failure complication: hypoxia Qualified Code(s): J96.01 - Acute respiratory failure with hypoxia Comment: extubate 07/07/2018 (4) PNA (pneumonia) Code(s): J18.9 - PNEUMONIA, UNSPECIFIED ORGANISM Status: Acute Qualifiers: Pneumonia type: aspiration pneumonia (5) Dyslipidemia Code(s): E78.5 - HYPERLIPIDEMIA, UNSPECIFIED Status: Chronic (6) Anxiety disorder Code(s): F41.9 - ANXIETY DISORDER, UNSPECIFIED Status: Chronic Qualifiers: Anxiety disorder type: unspecified anxiety disorder Qualified Code(s): F41.9 - Anxiety disorder, unspecified Comment: Pt takes trazodone for anxiety disorder. Will reassess when she can take oral meds. - Plan she apparently spoke a few words yesterday post extubation but none after t -: breathing comfortably -: is confused, will remove ventura, to wear jorgito hose and remove SCD's -: on cefepime, keppra and cardene drip -: iv fluids until cleared for swallowing, will need sitter * . Review of Systems - Medications/Allergies Allergies/Adverse Reactions: Allergies Allergy/AdvReac Type Severity Reaction Status Date / Time Unable to Assess Allergy Verified 07/06/18 14:45 Medications: Current Medications Famotidine (Pepcid) 20 mg SLOW IVP BID [facility] Last Admin: 07/08/18 08:09 Dose: 20 mg Cefepime HCl 1 gm/ Sodium (Chloride) 100 mls @ 200 mls/hr IVPB 0400,1600 [facility] Last Admin: 07/08/18 03:15 Dose: 100 mls Levetiracetam 500 mg/ Device 100 mls @ 200 mls/hr IVPB Q12HR [facility] Last Admin: 07/08/18 08:09 Dose: 100 mls Nicardipine HCl 25 mg/ Sodium (Chloride) 250 mls @ 0 mls/hr IVPB INF PRN; Protocol PRN Reason: TO KEEP SBP < 150 Last Admin: 07/07/18 08:52 Dose: 250 mls Lorazepam (Ativan) 1 mg SLOW IVP Q4H PRN PRN Reason: Anxiety Sodium Chloride (Flush - Normal Saline) 10 ml IVF Q12HR [facility]ECTOR Last Admin: 07/08/18 08:09 Dose: 10 ml Sodium Chloride (Flush - Normal Saline) 10 ml IVF PRN PRN PRN Reason: Saline Flush
[2018-07-08] MEDS: Sodium Chloride 0.9% 1,000 ML IV SCH ×2 (13:31→18:16)
[2018-07-08] MEDS: Lorazepam 2 MG/ML VIAL SLOW IVP PRN (15:14)
[2018-07-09] MEDS: Cefepime 1 GM in Sodium Chloride 0.9% 100 ML IVPB SCH ×2 (03:38→16:39)
[2018-07-09 04:10] LABS: #Basophils 0.1 thou/uL (0.0-0.2); #Eosinphils 0.9 thou/uL (0.0-0.7); #Monocytes 1.7 thou/uL (0.11-0.59); #Neutrophils 11.5 thou/uL (1.40-6.50); %Basophils 0.5 % (0.0-1.0); %Eosinophils 5.5 % (0.0-10.0); %Lymphocytes 12.5 % (21.0-51.0); %Monocytes 10.3 % (0.0-10.0); %Neutrophils 71.2 % (42.0-75.0); Hemoglobin 10.9 g/dL (12.0-16.0); Mean Corpuscular HGB CONC 33.9 g/dL (32.0-36.0); Mean Corpuscular Volume 88.5 fL (78.0-98.0); Mean Platelet Volume 7.5 fL (7.4-10.4); PLT Morphology Comment Appears Decreased; Platelet Count 110 thou/uL (130-400); RBC Distribution Width 12.3 % (11.5-14.5); Red Blood Cell (RBC) Count 3.64 mill/uL (4.20-5.40); White Blood Cell (WBC) Count 16.1 thou/uL (4.8-10.8)
[2018-07-09 04:19] LABS: Anion Gap 16 mmol/L (10-20); BUN (Urea Nitrogen) 16 mg/dL (9.8-20.1); Calc. Creatinine Clearance 88 mL/min (70-130); Calcium 8.1 mg/dL (7.8-10.44); Carbon Dioxide 17 mmol/L (23-31); Chloride 111 mmol/L (98-107); Estimated GFR-MDRD 76; Glucose 81 mg/dL (80-115); Potassium 3.8 mmol/L (3.5-5.1); Sodium 140 mmol/L (136-145)
--- NOTE | 2018-07-09 09:24 | RAD ---
SUPINE PORTABLE CHEST 1 VIEW: HISTORY: A 67-year-old female with respiratory insufficiency. COMPARISON: 07/08/18. FINDINGS: Monitor leads overlie the chest. Stable increased linear and interstitial markings in the perihilar and infrahilar regions without confluent pneumonia, overt edema, or other acute process. IMPRESSION: Stable chest. Continue short-term followup. POS: [facility]
[2018-07-09] MEDS: Famotidine/PF 20 mg/2ml Vial SLOW IVP SCH ×2 (09:32→21:03)
--- NOTE | 2018-07-09 10:20 | PRG ---
DATE OF SERVICE: 07/09/2018 SUBJECTIVE: The patient is moving around in bed. She is still extremely somnolent. OBJECTIVE: VITAL SIGNS: Temperature is 99.9 with a T-max of 100.2, pulse 70, blood pressure 148/66, O2 sat 94%. HEENT: Unremarkable. NECK: No JVD. CHEST: Clear without wheezing or rhonchi. CARDIAC: S1 and S2 regular. ABDOMEN: Soft. EXTREMITIES: No edema. ASSESSMENT: 1. Status post cerebrovascular accident with left-sided weakness. 2. Status post t-PA. 3. Right parietal intraparenchymal hemorrhage. 4. Encephalopathy. PLAN: The patient is continuing supportive care. She can move out to the stroke unit from a pulmona ry standpoint. She is currently off the nicardipine, so that drug will be discontinued from her MAR.
--- NOTE | 2018-07-09 12:48 | PDOC.PN ---
- Subjective Encounter Start Date: 07/09/18 Encounter Start Time: 11:00 Subjective: awake but not oriented -: moves all extremities -: per staff talks a bit but doesn't make sense - Objective MAR Reviewed: Yes Vital Signs & Weight: Vital Signs (12 hours) Temp Pulse Resp Pulse Ox 07/09/18 11:00 99.2 F 07/09/18 07:43 99.9 F H 96 12 97 07/09/18 06:56 99 07/09/18 03:00 99.9 F H Weight Admit Weight 169 lb Weight 167 lb 5.294 oz Most Recent Monitor Data Heart Rate from ECG 95 NIBP 154/73 NIBP BP-Mean 92 Respiration from ECG 28 SpO2 99 I&O: 07/08/18 07/09/18 07/10/18 06:59 06:59 06:59 Intake Total 982 918 100 Output Total 1230 1072 250 Balance -248 -154 -150 Result Diagrams: 07/09/18 03:15 07/09/18 03:15 Phys Exam - Physical Examination HEENT: PERRLA, sclera anicteric Neck: no JVD, supple Respiratory: no wheezing, no rales Cardiovascular: RRR, no significant murmur Gastrointestinal: soft, non-tender, positive bowel sounds Musculoskeletal: no edema, pulses present Neurological: non-focal, moves all 4 limbs Dx/Plan (1) Acute right MCA stroke Code(s): I63.511 - CEREB INFRC D/T UNSP OCCLS OR STENOS OF RIGHT MID CEREB ART Status: Acute Comment: s/p tPA, [facility] procedure, in CCU. (2) ICH (intracerebral hemorrhage) Code(s): I61.9 - NONTRAUMATIC INTRACEREBRAL HEMORRHAGE, UNSPECIFIED Status: Acute Qualifiers: Intracerebral hemorrhage etiology: nontraumatic Laterality: right Comment: right frontal lobe, small hemorrhage (3) Acute respiratory failure Code(s): J96.00 - ACUTE RESPIRATORY FAILURE, UNSP W HYPOXIA OR HYPERCAPNIA Status: Resolved Qualifiers: Respiratory failure complication: hypoxia Qualified Code(s): J96.01 - Acute respiratory failure with hypoxia Comment: extubated 07/07/2018 (4) PNA (pneumonia) Code(s): J18.9 - PNEUMONIA, UNSPECIFIED ORGANISM Status: Acute Qualifiers: Pneumonia type: aspiration pneumonia (5) Dyslipidemia Code(s): E78.5 - HYPERLIPIDEMIA, UNSPECIFIED Status: Chronic (6) Anxiety disorder Code(s): F41.9 - ANXIETY DISORDER, UNSPECIFIED Status: Chronic Qualifiers: Anxiety disorder type: unspecified anxiety disorder Qualified Code(s): F41.9 - Anxiety disorder, unspecified Comment: Pt takes trazodone for anxiety disorder. Will reassess when she can take oral meds. - Plan awaiting speech eval to clear her for oral diet/meds -: on cefepime, keppra -: gentle iv hydration until cleared by speech -: has met acidosis with hco3 of 17 -: prognosis guarded, PT/OT to start mobilizing as tolerated * . Review of Systems - Medications/Allergies Allergies/Adverse Reactions: Allergies Allergy/AdvReac Type Severity Reaction Status Date / Time Unable to Assess Allergy Verified 07/06/18 14:45 Medications: Current Medications Famotidine (Pepcid) 20 mg SLOW IVP BID [facility] Last Admin: 07/09/18 09:32 Dose: 20 mg Cefepime HCl 1 gm/ Sodium (Chloride) 100 mls @ 200 mls/hr IVPB 0400,1600 HECTOR Last Admin: 07/09/18 03:38 Dose: 100 mls Levetiracetam 500 mg/ Device 100 mls @ 200 mls/hr IVPB Q12HR [facility] Last Admin: 07/09/18 09:31 Dose: 100 mls Sodium Chloride (Normal Saline 0.9%) 1,000 mls @ 50 mls/hr IV .Q20H [facility]ECT[facility] Last Admin: 07/08/18 13:31 Dose: 1,000 mls Lorazepam (Ativan) 1 mg SLOW IVP Q4H PRN PRN Reason: Anxiety Last Admin: 07/08/18 15:14 Dose: 1 mg Sodium Chloride (Flush - Normal Saline) 10 ml IVF Q12HR [facility] Last Admin: 07/09/18 09:58 Dose: 10 ml Sodium Chloride (Flush - Normal Saline) 10 ml IVF PRN PRN PRN Reason: Saline Flush
[2018-07-09] MEDS: Sodium Chloride 0.9% 1,000 ML IV SCH (16:40)
[2018-07-09] MEDS: Lorazepam 2 MG/ML VIAL SLOW IVP PRN (21:03)
--- NOTE | 2018-07-09 21:20 | EKG ---
Test Reason : ER Blood Pressure : / mmHG Vent. Rate : 092 BPM Atrial Rate : 092 BPM P-R Int : 208 ms QRS Dur : 084 ms QT Int : 380 ms P-R-T Axes : 070 024 041 degrees QTc Int : 469 ms Normal sinus rhythm Normal ECG Confirmed by PAUL FULTON DO ([id number]), editor city JAME BOWERS ([id number]) on 07/09/2018 9:20:13 PM Referred By: Confirmed By:PAUL FULTON DO
[2018-07-10] MEDS: Cefepime 1 GM in Sodium Chloride 0.9% 100 ML IVPB SCH ×2 (03:47→15:45)
[2018-07-10] MEDS: Lorazepam 2 MG/ML VIAL SLOW IVP PRN ×2 (03:47→08:15)
[2018-07-10 05:39] LABS: Anion Gap 16 mmol/L (10-20); BUN (Urea Nitrogen) 15 mg/dL (9.8-20.1); Calc. Creatinine Clearance 87 mL/min (70-130); Calcium 8.2 mg/dL (7.8-10.44); Carbon Dioxide 15 mmol/L (23-31); Chloride 112 mmol/L (98-107); Estimated GFR-MDRD 75; Glucose 77 mg/dL (80-115); Sodium 139 mmol/L (136-145)
[2018-07-10 06:30] LABS: Band 11 % (5-11); Eosinophils 3 % (0-10); Lymphocytes 9 % (21-51); MDiff Complete? YES; Mean Corpuscular HGB CONC 31.7 g/dL (32.0-36.0); Mean Corpuscular Hemoglobin 27.9 pg (27.0-31.0); Mean Corpuscular Volume 87.9 fL (78.0-98.0); Mean Platelet Volume 7.7 fL (7.4-10.4); Monocytes 7 % (0-10); Neutrophil 70 % (42-75); PLT Morphology Comment Appears Decreased; Platelet Count 106 thou/uL (130-400); RBC Distribution Width 12.4 % (11.5-14.5); RBC Morphology Normal; Red Blood Cell (RBC) Count 4.31 mill/uL (4.20-5.40)
[2018-07-10] MEDS: Famotidine/PF 20 mg/2ml Vial SLOW IVP SCH ×2 (08:13→20:54)
[2018-07-10] MEDS: Sodium Chloride 0.9% 1,000 ML IV SCH (08:36)
--- NOTE | 2018-07-10 09:45 | PRG ---
DATE OF SERVICE: 07/10/2018 SUBJECTIVE: The patient remains in the CCU. She has become agitated at times, requiring intermitten t Ativan. She was given Ativan right before I saw her this morning, so she was asleep and I could no t awake her very easily. PHYSICAL EXAMINATION: VITAL SIGNS: On exam, temperature is 98.8, pulse 102, blood pressure 147/68. HEENT: Unremarkable. NECK: No JVD. CHEST: Clear. CARDIAC: S1 and S2, regular. ABDOMEN: Soft. EXTREMITIES: No edema. LABORATORY DATA: White blood cell count 19, hematocrit 37.9, platelet count 106. Sodium 139, potass ium 4, chloride 112, CO2 of 15, BUN 50, creatinine 0.7, glucose 77. ASSESSMENT: 1. Status post cerebrovascular accident. 2. Status post t-PA. 3. Right parietal intraparenchymal hemorrhage. 4. Encephalopathy. 5. Non-anion gap metabolic acidosis. PLAN: This patient can be moved to the stroke unit. I think her antibiotics can be stopped after to jorge. I would go ahead and stop the normal saline to see if the metabolic acidosis will improve. Continue therapy with speech, physical therapy, occupational therapy, etc.
--- NOTE | 2018-07-10 10:49 | RAD ---
ABDOMEN 1 VIEW: HISTORY: A 67-year-old female with a history of respiratory insufficiency, Dobbhoff tube placement. FINDINGS: A Dobbhoff tube catheter has been placed which is somewhat coiled within the fundus of the stomach. No evidence for bowel obstruction. IMPRESSION: Dobbhoff tube coiled in the fundus of the stomach. POS: [facility]
--- NOTE | 2018-07-10 12:18 | PDOC.PN ---
- Subjective Encounter Start Date: 07/10/18 Encounter Start Time: 09:00 Subjective: sitting in neurochair, cant awaken, got ativan for agitation -: per staff is moving all extremities - Objective MAR Reviewed: Yes Vital Signs & Weight: Vital Signs (12 hours) Temp Pulse Resp Pulse Ox 07/10/18 12:00 98.5 F 07/10/18 08:00 98.8 F 102 H 25 H 98 07/10/18 04:00 98.6 F Weight Admit Weight 169 lb Weight 149 lb 14.629 oz Most Recent Monitor Data Heart Rate from ECG 113 NIBP 140/64 NIBP BP-Mean 90 Respiration from ECG 26 SpO2 100 I&O: 07/09/18 07/10/18 07/11/18 06:59 06:59 06:59 Intake Total 918 1472 272 Output Total 1072 750 Balance -154 722 272 Result Diagrams: 07/10/18 04:25 07/10/18 04:22 Phys Exam - Physical Examination HEENT: PERRLA, sclera anicteric Neck: no JVD, supple Respiratory: no wheezing, no rales Cardiovascular: RRR, no significant murmur Gastrointestinal: soft, non-tender, positive bowel sounds Musculoskeletal: no edema, pulses present Neurological: non-focal, moves all 4 limbs Dx/Plan (1) Acute encephalopathy Code(s): G93.40 - ENCEPHALOPATHY, UNSPECIFIED Status: Acute (2) Acute right MCA stroke Code(s): I63.511 - CEREB INFRC D/T UNSP OCCLS OR STENOS OF RIGHT MID CEREB ART Status: Acute Comment: s/p tPA, [facility] (3) ICH (intracerebral hemorrhage) Code(s): I61.9 - NONTRAUMATIC INTRACEREBRAL HEMORRHAGE, UNSPECIFIED Status: Acute Qualifiers: Intracerebral hemorrhage etiology: nontraumatic Laterality: right Comment: right frontal lobe, small hemorrhage (4) Acute respiratory failure Code(s): J96.00 - ACUTE RESPIRATORY FAILURE, UNSP W HYPOXIA OR HYPERCAPNIA Status: Resolved Qualifiers: Respiratory failure complication: hypoxia Qualified Code(s): J96.01 - Acute respiratory failure with hypoxia Comment: extubated 07/07/2018 (5) PNA (pneumonia) Code(s): J18.9 - PNEUMONIA, UNSPECIFIED ORGANISM Status: Acute Qualifiers: Pneumonia type: aspiration pneumonia (6) Dyslipidemia Code(s): E78.5 - HYPERLIPIDEMIA, UNSPECIFIED Status: Chronic (7) Anxiety disorder Code(s): F41.9 - ANXIETY DISORDER, UNSPECIFIED Status: Chronic Qualifiers: Anxiety disorder type: unspecified anxiety disorder Qualified Code(s): F41.9 - Anxiety disorder, unspecified Comment: Pt takes trazodone for anxiety disorder. Will reassess when she can take oral meds. - Plan cont current plan of care speech to re-eval her this morning for feeds/meds -: continue iv fluids until able to tolerate oral diet -: ?peg tube -: PT/OT to mobilize pt as tolerated -: cefepime and keppra * . Review of Systems - Medications/Allergies Allergies/Adverse Reactions: Allergies Allergy/AdvReac Type Severity Reaction Status Date / Time Unable to Assess Allergy Verified 07/06/18 14:45 Medications: Current Medications Famotidine (Pepcid) 20 mg SLOW IVP BID [facility] Last Admin: 07/10/18 08:13 Dose: 20 mg Cefepime HCl 1 gm/ Sodium (Chloride) 100 mls @ 200 mls/hr IVPB 0400,1600 HECTOR Last Admin: 07/10/18 03:47 Dose: 100 mls Levetiracetam 500 mg/ Device 100 mls @ 200 mls/hr IVPB Q12HR [facility]ECTOR Last Admin: 07/10/18 08:13 Dose: 100 mls Lorazepam (Ativan) 1 mg SLOW IVP Q4H PRN PRN Reason: Anxiety Last Admin: 07/10/18 08:15 Dose: 1 mg Sodium Chloride (Flush - Normal Saline) 10 ml IVF Q12HR HECTOR Last Admin: 07/10/18 08:16 Dose: 10 ml Sodium Chloride (Flush - Normal Saline) 10 ml IVF PRN PRN PRN Reason: Saline Flush
[2018-07-10] MEDS: Acetaminophen 1,000 MG in Premix Bag 1 BAG IVPB SCH (23:18)
[2018-07-11] MEDS: Cefepime 1 GM in Sodium Chloride 0.9% 100 ML IVPB SCH ×2 (04:33→17:33)
[2018-07-11] MEDS: Acetaminophen 1,000 MG in Premix Bag 1 BAG IVPB SCH (05:41)
[2018-07-11 05:46] LABS: #Basophils 0.1 thou/uL (0.0-0.2); #Eosinphils 1.2 thou/uL (0.0-0.7); #Lymphocytes 2.3 thou/uL (1.20-3.40); #Monocytes 1.7 thou/uL (0.11-0.59); #Neutrophils 13.3 thou/uL (1.40-6.50); %Basophils 0.5 % (0.0-1.0); %Eosinophils 6.4 % (0.0-10.0); %Lymphocytes 12.1 % (21.0-51.0); %Monocytes 9.3 % (0.0-10.0); %Neutrophils 71.7 % (42.0-75.0); Mean Corpuscular Volume 88.3 fL (78.0-98.0); Mean Platelet Volume 6.6 fL (7.4-10.4); Platelet Count 157 thou/uL (130-400); RBC Distribution Width 12.4 % (11.5-14.5); Red Blood Cell (RBC) Count 3.65 mill/uL (4.20-5.40); White Blood Cell (WBC) Count 18.5 thou/uL (4.8-10.8)
[2018-07-11 05:53] LABS: Anion Gap 13 mmol/L (10-20); BUN (Urea Nitrogen) 16 mg/dL (9.8-20.1); Calc. Creatinine Clearance 82 mL/min (70-130); Calcium 8.5 mg/dL (7.8-10.44); Carbon Dioxide 18 mmol/L (23-31); Chloride 112 mmol/L (98-107); Estimated GFR-MDRD 80; Glucose 95 mg/dL (80-115); Potassium 3.6 mmol/L (3.5-5.1); Sodium 139 mmol/L (136-145)
[2018-07-11] MEDS: Famotidine/PF 20 mg/2ml Vial SLOW IVP SCH ×2 (08:16→22:22)
[2018-07-11] MEDS ORDERED: Acetaminophen 500 MG TAB PO PRN (10:44)
--- NOTE | 2018-07-11 11:40 | PRG ---
DATE OF SERVICE: 07/11/2018 SERVICE: Pulmonary Medicine INTERVAL HISTORY: The patient is doing fine from a respiratory standpoint. She denies any current c hest pain, nausea, vomiting, fevers, chills, shortness of breath. Otherwise, she has been requiring restraints. She got a 1:1 sitter. Nursing reports no other significant overnight events. PHYSICAL EXAMINATION: VITAL SIGNS: Afebrile, pulse 92, blood pressure 139/65, respirations 20, saturation 97% on room air, there was a temperature max of 101.9 overnight. HEENT: Normocephalic, atraumatic. Sclerae are white, conjunctivae pink. Oral mucosa is moist witho ut lesions. LUNGS: Decent air entry. No rhonchi are appreciated. There is no prolonged expiratory phase or whe ezing appreciated. HEART: Normal rate, regular. ABDOMEN: Soft, nontender, nondistended. Bowel sounds are positive. MUSCULOSKELETAL: No cyanosis or clubbing. There is no pitting in the bilateral lower extremities. NEUROLOGIC: Grossly nonfocal. LABORATORY DATA: WBC 18.5, hemoglobin 11.0, platelets 157,000. Basic metabolic profile is otherwise unremarkable. Potassium 3.6. IMAGIN. KUB demonstrates a new enteric catheter coiling in the stomach. 2. Chest x-ray demonstrates perihilar interstitial markings without overt consolidating changes. No pleural effusions are noted. ASSESSMENT: 1. Cerebrovascular accident, status post tissue plasminogen activator. 2. Right parietal intraparenchymal hemorrhage. 3. Encephalopathy. 4. Sepsis without evidence of end organ damage. DISCUSSION AND PLAN: With the next fever, a dunn culture should be obtained. Antibiotics need to be directed at whatever organism we see. For the time being, we will continue antibiotics and other sup portive measures. At this time, the patient has no further requirements for inpatient Pulmonary or C ritical Care opinion, and we will sign off. Please call with additional questions or concerns moving forward.
[2018-07-11] MEDS ORDERED: Sodium Bicarbonate Tab 325 MG TAB PER TUBE PRN (12:29)
[2018-07-11] MEDS ORDERED: Pancrelipase DR 12000 1 CAP FS PRN (12:29)
--- NOTE | 2018-07-11 12:53 | PDOC.PN ---
- Subjective Encounter Start Date: 07/11/18 Encounter Start Time: 11:00 Subjective: is not awake or oriented, seen moving all extremities -: has restraints on Upper extremities as she is trying to pull Dobhoff tube -: sitter at bedside, brother in room - Objective MAR Reviewed: Yes Vital Signs & Weight: Vital Signs (12 hours) Temp Pulse Resp BP Pulse Ox 07/11/18 12:00 99.0 F 83 20 141/63 H 97 07/11/18 08:00 98.4 F 92 20 07/11/18 07:52 98.4 F 92 20 139/65 97 07/11/18 04:00 98.5 F 89 16 136/61 100 Weight Admit Weight 169 lb Weight 155 lb Most Recent Monitor Data Heart Rate from ECG 95 NIBP 150/70 NIBP BP-Mean 91 Respiration from ECG 22 SpO2 99 I&O: 07/10/18 07/11/18 07/12/18 06:59 06:59 06:59 Intake Total 1472 272 Output Total 750 150 Balance 722 122 Result Diagrams: 07/11/18 05:23 07/11/18 05:23 Phys Exam - Physical Examination HEENT: PERRLA, sclera anicteric Neck: no JVD, supple Respiratory: no wheezing, no rales Cardiovascular: RRR, no significant murmur Gastrointestinal: soft, non-tender, positive bowel sounds Musculoskeletal: no edema, pulses present Neurological: moves all 4 limbs Dx/Plan (1) Acute encephalopathy Code(s): G93.40 - ENCEPHALOPATHY, UNSPECIFIED Status: Acute (2) Acute right MCA stroke Code(s): I63.511 - CEREB INFRC D/T UNSP OCCLS OR STENOS OF RIGHT MID CEREB ART Status: Acute Comment: s/p tPA, [facility] (3) ICH (intracerebral hemorrhage) Code(s): I61.9 - NONTRAUMATIC INTRACEREBRAL HEMORRHAGE, UNSPECIFIED Status: Acute Qualifiers: Intracerebral hemorrhage etiology: nontraumatic Laterality: right Comment: right frontal lobe, small hemorrhage (4) Acute respiratory failure Code(s): J96.00 - ACUTE RESPIRATORY FAILURE, UNSP W HYPOXIA OR HYPERCAPNIA Status: Resolved Qualifiers: Respiratory failure complication: hypoxia Qualified Code(s): J96.01 - Acute respiratory failure with hypoxia Comment: extubated 07/07/2018 (5) PNA (pneumonia) Code(s): J18.9 - PNEUMONIA, UNSPECIFIED ORGANISM Status: Acute Qualifiers: Pneumonia type: aspiration pneumonia (6) Dyslipidemia Code(s): E78.5 - HYPERLIPIDEMIA, UNSPECIFIED Status: Chronic (7) Anxiety disorder Code(s): F41.9 - ANXIETY DISORDER, UNSPECIFIED Status: Chronic Qualifiers: Anxiety disorder type: unspecified anxiety disorder Qualified Code(s): F41.9 - Anxiety disorder, unspecified Comment: Pt takes trazodone for anxiety disorder. Will reassess when she can take oral meds. (8) Dysphagia Code(s): R13.10 - DYSPHAGIA, UNSPECIFIED Status: Acute - Plan is getting Dobhoff feedings from yesterday -: d/w brother POA about possible peg if she didn't clear swallow eval in 24hr -: still is encephalopathic, seen moving all extremities -: repeat imaging if new changes noted/per nsx -: PT/OT to work with patient as tolerated, likely will need snf * . On cefepime and keppra iv Had temp of 101.9 last 24hrs, repeat blood and urine cs. Prognosis guarded Review of Systems - Medications/Allergies Allergies/Adverse Reactions: Allergies Allergy/AdvReac Type Severity Reaction Status Date / Time Unable to Assess Allergy Verified 07/06/18 14:45 Medications: Current Medications Acetaminophen (Tylenol Elixir) 1,000 mg PER TUBE Q6H PRN PRN Reason: Headache/Fever or Pain Lipase/Protease/Amylase (Milind Genao [id number]) 1 cap FS .PER PROTOCOL PRN PRN Reason: TUBE OCCLUSION PROTOCOL Famotidine (Pepcid) 20 mg SLOW IVP BID [facility] Last Admin: 07/11/18 08:16 Dose: 20 mg Cefepime HCl 1 gm/ Sodium (Chloride) 100 mls @ 200 mls/hr IVPB 0400,1600 [facility]ECTOR Last Admin: 07/11/18 04:33 Dose: 100 mls Levetiracetam 500 mg/ Device 100 mls @ 200 mls/hr IVPB Q12HR [facility] Last Admin: 07/11/18 08:16 Dose: 100 mls Lorazepam (Ativan) 1 mg SLOW IVP Q4H PRN PRN Reason: Anxiety Last Admin: 07/10/18 08:15 Dose: 1 mg Potassium Chloride (Klor-Con) 40 meq PER TUBE ONE HECTOR Stop: 07/11/18 13:00 Sodium Bicarbonate (Bicarbonate, Sodium) 650 mg PER TUBE .PER PROTOCOL PRN PRN Reason: ENTERAL TUBE OCCLUSION Sodium Chloride (Flush - Normal Saline) 10 ml IVF Q12HR HECTOR Last Admin: 07/11/18 08:17 Dose: 10 ml Sodium Chloride (Flush - Normal Saline) 10 ml IVF PRN PRN PRN Reason: Saline Flush
[2018-07-12] MEDS: Cefepime 1 GM in Sodium Chloride 0.9% 100 ML IVPB SCH ×2 (04:14→15:07)
[2018-07-12 06:09] LABS: Anion Gap 15 mmol/L (10-20); BUN (Urea Nitrogen) 16 mg/dL (9.8-20.1); Calc. Creatinine Clearance 85 mL/min (70-130); Calcium 8.3 mg/dL (7.8-10.44); Carbon Dioxide 17 mmol/L (23-31); Chloride 112 mmol/L (98-107); Estimated GFR-MDRD 78; Glucose 95 mg/dL (80-115); Potassium 3.5 mmol/L (3.5-5.1); Sodium 140 mmol/L (136-145)
[2018-07-12] MEDS: Famotidine/PF 20 mg/2ml Vial SLOW IVP SCH ×2 (08:47→21:36)
[2018-07-12 11:41] LABS: Band 12 % (5-11); Eosinophils 4 % (0-10); Hemoglobin 10.8 g/dL (12.0-16.0); Lymphocytes 8 % (21-51); MDiff Complete? YES; Mean Corpuscular HGB CONC 34.4 g/dL (32.0-36.0); Mean Corpuscular Hemoglobin 30.3 pg (27.0-31.0); Mean Corpuscular Volume 88.1 fL (78.0-98.0); Microcytosis SLIGHT = 6-15 cells (100X) (0-5/hpf); Monocytes 17 % (0-10); Neutrophil 59 % (42-75); PLT Morphology Comment Appears Adequate; Platelet Count 162 thou/uL (130-400); Polychromasia SLIGHT = 2-3 cells (100X) (0-2/hpf); RBC Distribution Width 12.6 % (11.5-14.5); Red Blood Cell (RBC) Count 3.55 mill/uL (4.20-5.40); White Blood Cell (WBC) Count 17.7 thou/uL (4.8-10.8)
[2018-07-12] MEDS ORDERED: Acetaminophen 650 MG Suppository PR PRN (12:41)
[2018-07-12] MEDS ORDERED: PROPOFOL 200 MG/20 ML VIAL ONE (13:56)
--- NOTE | 2018-07-12 14:29 | PDOC.PN ---
- Subjective Encounter Start Date: 07/12/18 Encounter Start Time: 08:00 Subjective: still not oriented, barely opens eyes -: seen moving extremities -: not cleared for swallowing - Objective MAR Reviewed: Yes Vital Signs & Weight: Vital Signs (12 hours) Temp Pulse Resp BP Pulse Ox 07/12/18 12:03 98.8 F 89 16 129/62 97 07/12/18 04:00 98.8 F 88 20 111/54 L 95 Weight Admit Weight 169 lb Weight 158 lb 11.2 oz Most Recent Monitor Data Heart Rate from ECG 95 NIBP 150/70 NIBP BP-Mean 91 Respiration from ECG 22 SpO2 99 I&O: 07/11/18 07/12/18 07/13/18 06:59 06:59 06:59 Intake Total 272 Output Total 150 Balance 122 Result Diagrams: 07/12/18 05:32 07/12/18 05:32 Phys Exam - Physical Examination HEENT: PERRLA, moist MMs Neck: no JVD, supple Respiratory: no wheezing, no rales Cardiovascular: RRR, no significant murmur Gastrointestinal: soft, non-tender, positive bowel sounds Musculoskeletal: no edema, pulses present Neurological: moves all 4 limbs Dx/Plan (1) Acute encephalopathy Code(s): G93.40 - ENCEPHALOPATHY, UNSPECIFIED Status: Acute (2) Acute right MCA stroke Code(s): I63.511 - CEREB INFRC D/T UNSP OCCLS OR STENOS OF RIGHT MID CEREB ART Status: Acute Comment: s/p tPA, [facility] (3) ICH (intracerebral hemorrhage) Code(s): I61.9 - NONTRAUMATIC INTRACEREBRAL HEMORRHAGE, UNSPECIFIED Status: Acute Qualifiers: Intracerebral hemorrhage etiology: nontraumatic Laterality: right Comment: right frontal lobe, small hemorrhage (4) Acute respiratory failure Code(s): J96.00 - ACUTE RESPIRATORY FAILURE, UNSP W HYPOXIA OR HYPERCAPNIA Status: Resolved Qualifiers: Respiratory failure complication: hypoxia Qualified Code(s): J96.01 - Acute respiratory failure with hypoxia Comment: extubated 07/07/2018 (5) PNA (pneumonia) Code(s): J18.9 - PNEUMONIA, UNSPECIFIED ORGANISM Status: Acute Qualifiers: Pneumonia type: aspiration pneumonia (6) Dyslipidemia Code(s): E78.5 - HYPERLIPIDEMIA, UNSPECIFIED Status: Chronic (7) Anxiety disorder Code(s): F41.9 - ANXIETY DISORDER, UNSPECIFIED Status: Chronic Qualifiers: Anxiety disorder type: unspecified anxiety disorder Qualified Code(s): F41.9 - Anxiety disorder, unspecified Comment: Pt takes trazodone for anxiety disorder. Will reassess when she can take oral meds. (8) Dysphagia Code(s): R13.10 - DYSPHAGIA, UNSPECIFIED Status: Acute - Plan d/w for peg tube -: d/w brother about peg tube for nutrition and meds -: prognosis guarded -: will need snf -: is on keppra, cefepime * . Review of Systems - Medications/Allergies Allergies/Adverse Reactions: Allergies Allergy/AdvReac Type Severity Reaction Status Date / Time Unable to Assess Allergy Verified 07/06/18 14:45 Medications: Current Medications Acetaminophen (Tylenol Elixir) 1,000 mg PER TUBE Q6H PRN PRN Reason: Headache/Fever or Pain Acetaminophen (Tylenol) 650 mg [place] Q6H PRN PRN Reason: Headache/Fever or Pain Lipase/Protease/Amylase (Milind Genao 09378) 1 cap FS .PER PROTOCOL PRN PRN Reason: TUBE OCCLUSION PROTOCOL Last Admin: 07/11/18 12:53 Dose: 1 cap Famotidine (Pepcid) 20 mg SLOW IVP BID [facility] Last Admin: 07/12/18 12:15 Dose: 20 mg Cefepime HCl 1 gm/ Sodium (Chloride) 100 mls @ 200 mls/hr IVPB 0400,1600 [facility] Last Admin: 07/12/18 04:14 Dose: 100 mls Levetiracetam 500 mg/ Device 100 mls @ 200 mls/hr IVPB Q12HR [facility] Last Admin: 07/12/18 12:15 Dose: 100 mls Lorazepam (Ativan) 1 mg SLOW IVP Q4H PRN PRN Reason: Anxiety Last Admin: 07/10/18 08:15 Dose: 1 mg Sodium Bicarbonate (Bicarbonate, Sodium) 650 mg PER TUBE .PER PROTOCOL PRN PRN Reason: ENTERAL TUBE OCCLUSION Last Admin: 07/11/18 12:53 Dose: 650 mg Sodium Chloride (Flush - Normal Saline) 10 ml IVF Q12HR [facility] Last Admin: 07/12/18 12:16 Dose: 10 ml Sodium Chloride (Flush - Normal Saline) 10 ml IVF PRN PRN PRN Reason: Saline Flush
[2018-07-12] MEDS ORDERED: Fentanyl 100 MCG/2 ML VIAL ONE ×2 (17:51→19:07)
--- NOTE | 2018-07-12 21:58 | PDOC.EVN ---
Event Note - Event Note Event Note: paged by rn since pt has presented pt's written advanced directives, that stated pt's wishes is to be DNR/DNI, ok to continue medical treatment. RN, , and 2 other family members were in the room during the discussion. All questions answered. we will follow pt's [id number] written wishes
[2018-07-12] MEDS: Piperacillin/Tazobactam 3.375 GM in Sodium Chloride 0.9% 100 ML IVPB SCH (23:13)
[2018-07-13] MEDS: Piperacillin/Tazobactam 3.375 GM in Sodium Chloride 0.9% 100 ML IVPB SCH ×2 (03:30→10:37)
[2018-07-13 04:13] LABS: Anion Gap 14 mmol/L (10-20); BUN (Urea Nitrogen) 14 mg/dL (9.8-20.1); Calc. Creatinine Clearance 83 mL/min (70-130); Calcium 8.2 mg/dL (7.8-10.44); Carbon Dioxide 18 mmol/L (23-31); Chloride 110 mmol/L (98-107); Estimated GFR-MDRD 75; Glucose 102 mg/dL (80-115); Potassium 3.9 mmol/L (3.5-5.1); Sodium 138 mmol/L (136-145)
[2018-07-13 04:30] LABS: Band 28 % (5-11); Eosinophils 4 % (0-10); Hemoglobin 11.5 g/dL (12.0-16.0); Lymphocytes 11 % (21-51); MDiff Complete? YES; Mean Corpuscular HGB CONC 33.9 g/dL (32.0-36.0); Mean Corpuscular Hemoglobin 29.6 pg (27.0-31.0); Mean Corpuscular Volume 87.4 fL (78.0-98.0); Mean Platelet Volume 7.7 fL (7.4-10.4); Monocytes 10 % (0-10); Neutrophil 47 % (42-75); PLT Morphology Comment Appears Adequate; Platelet Count 125 thou/uL (130-400); RBC Distribution Width 12.7 % (11.5-14.5); Red Blood Cell (RBC) Count 3.87 mill/uL (4.20-5.40); White Blood Cell (WBC) Count 20.4 thou/uL (4.8-10.8)
[2018-07-13] MEDS: Acetaminophen 650 MG/20.3 ML UDCUP PER TUBE PRN (06:03)
--- NOTE | 2018-07-13 08:13 | RAD ---
UPRIGHT PORTABLE CHEST ONE VIEW: History: 67-year-old female with history of persistent fever. Comparison: 07-09-18 FINDINGS: Monitor leads overlie the chest. Increased bronchovascular markings in the perihilar regions. Mild ri ght hemidiaphragm elevation. Heart size within normal limits. The lungs are clear. IMPRESSION: Increased bronchovascular markings in the perihilar regions bilaterally, but stable. No confluent pne umonia, overt edema, or other acute process. Atherosclerosis of the aorta with ectasia. POS: [facility]
--- NOTE | 2018-07-13 08:16 | CON ---
DATE OF CONSULTATION: 07/12/2018 REFERRING PHYSICIAN: Gerhard Hoffman M.D. REASON FOR CONSULTATION: Evaluate the patient for endoscopic gastrostomy tube placement. HISTORY OF PRESENT ILLNESS: Most of the history was obtained by going up in the admitting history an d physical and previous consultation notes. Ms. Rachel Kat is an unfortunate 67-year-old [place] an female with acute CVA, hospitalized with left-sided weakness. She underwent surgery by Dr. Reeves with thrombectomy of the right middle cerebral artery. The patient has a Dobbhoff tube before, but s he kept pulling it out. She is restless and . The patient has had no oral feeding for several days. She was admitted approximately about 6 days ago. I was asked to see the patient by Dr. Carolyn sullivan for endoscopic gastrostomy tube placement. The patient is awake and does not really verbalize. The patient's brother is in the room. I did talk to him about these procedures, EGD and PEG tube p lacement. Potential benefits and risks to include infection, leakage and bleeding, etc. The patient 's brother is willing to have the PEG tube placement. MEDICATION LIST: Reviewed. Medical history including surgical history and smoking, alcohol history, not available. PHYSICAL EXAMINATION: GENERAL: She is awake, but does not verbalize. VITAL SIGNS: Afebrile, pulse is 94, blood pressure 152/68. HEENT: Conjunctivae clear. CARDIOVASCULAR SYSTEM: First and second heart sounds normal. LUNGS: Clear to auscultation. ABDOMEN: Abdomen is soft. Abdomen is nondistended. Abdomen is nontender. No organomegaly. LABORATORY DATA: From today, CBC: WBC 17,700, hemoglobin 10.8, hematocrit 32.1, MCV 88.1, platelet count is 162,000, polymorphs 59, bands 12%, monocytes 17. Chemistry panel: Sodium 140, potassium 3. 5, chloride 112, bicarbonate 17, BUN is 16, creatinine 0.75, glucose is 95. Bilirubin and liver func tion is normal. CLINICAL IMPRESSION: A 67-year-old female with acute cerebrovascular accident, status post thrombectomy. She is still not eating well. She has had a Dobhoff placement in the past which is j ust pulled out. I had a long discussion with patient's brother and explained about procedure in [facility]. The procedure risks like infection, bleeding, leakage later on. I discussed with the patient's brother and is agreeable to proceed with EGD and PEG tube. I will plan for EGD and PEG tube later on today.
[2018-07-13] MEDS: Famotidine/PF 20 mg/2ml Vial SLOW IVP SCH (09:22)
--- NOTE | 2018-07-13 09:57 | CT ---
CT BRAIN: Date: 07-13-18 Comparison: 07-07-18 History: patient with previous trauma and bleed. Technique: Noncontrast images of the brain obtained. FINDINGS: Images demonstrate interval development of an area of stoke in the left posterior temporal lobe invol ving the left temporoccipital region. This area was not present on the previous comparison CT. There is also interval decreased developing density but slight increase in size of the posterior righ t frontal intraparenchymal hemorrhage. Maximum diameter is now increased at 2.0 cm compared to 1.7 cm on the previous exam. There is also adjacent areas of vasogenic edema surrounding this area of hemor rhage. The small adjacent areas of subarachnoid hemorrhage in the posterior right frontal lobe subara chnoid space has slightly decreased as well. There does appear to be interval development of an area of acute stroke or contusion in the right parietal and parietotemporal brain parenchyma. There is also interval development of a small area of subarachnoid hemorrhage in the left parietal re gion which was not present on the previous exam. There is also interval development of a small area of additional hemorrhage in the right frontal lobe seen on axial image #19. This is a small area of newly developed hemorrhage measuring approximately 6.8 mm in diameter in the right frontal lobe region. IMPRESSION: Slight increase in the previously noted right posterior frontal hemorrhage. Additional areas of acute infarction seen in the right and left temporal and right parietal lobe regions. There is also additi onal areas of right frontal and left parietal focal areas of hemorrhages. There also may be a small a chris of newly visualized hemorrhage in the right anterior temporal lobe seen on axial image #10. POS: [facility]
--- NOTE | 2018-07-13 11:09 | PDOC.PN ---
- Subjective Encounter Start Date: 07/13/18 Encounter Start Time: 09:30 Subjective: awakens to touch, not oriented -: no sob -: tolerating peg continous feeding - Objective Resuscitation Status: Resuscitation Status DNR:Do Not Resuscitate MAR Reviewed: Yes Vital Signs & Weight: Vital Signs (12 hours) Temp Pulse Resp BP Pulse Ox 07/13/18 08:00 99.5 F 76 15 127/61 97 07/13/18 04:00 100.6 F H 95 18 130/60 97 07/13/18 00:36 100 07/13/18 00:00 102.0 F H 101 H 18 148/67 H 98 Weight Admit Weight 169 lb Weight 157 lb 12.8 oz Most Recent Monitor Data Heart Rate from ECG 95 NIBP 150/70 NIBP BP-Mean 91 Respiration from ECG 22 SpO2 99 Result Diagrams: 07/13/18 03:33 07/13/18 03:33 Phys Exam - Physical Examination HEENT: PERRLA, sclera anicteric Neck: no JVD, supple Respiratory: no wheezing, no rales Cardiovascular: RRR, no significant murmur Gastrointestinal: soft, no distention, positive bowel sounds peg+ Musculoskeletal: no edema, pulses present Neurological: moves all 4 limbs Dx/Plan (1) Acute encephalopathy Code(s): G93.40 - ENCEPHALOPATHY, UNSPECIFIED Status: Acute (2) Acute right MCA stroke Code(s): I63.511 - CEREB INFRC D/T UNSP OCCLS OR STENOS OF RIGHT MID CEREB ART Status: Acute Comment: s/p tPA, [facility] (3) ICH (intracerebral hemorrhage) Code(s): I61.9 - NONTRAUMATIC INTRACEREBRAL HEMORRHAGE, UNSPECIFIED Status: Acute Qualifiers: Intracerebral hemorrhage etiology: nontraumatic Laterality: right Comment: right frontal lobe (4) Acute respiratory failure Code(s): J96.00 - ACUTE RESPIRATORY FAILURE, UNSP W HYPOXIA OR HYPERCAPNIA Status: Resolved Qualifiers: Respiratory failure complication: hypoxia Qualified Code(s): J96.01 - Acute respiratory failure with hypoxia Comment: extubated 07/07/2018 (5) PNA (pneumonia) Code(s): J18.9 - PNEUMONIA, UNSPECIFIED ORGANISM Status: Acute Qualifiers: Pneumonia type: aspiration pneumonia (6) Dyslipidemia Code(s): E78.5 - HYPERLIPIDEMIA, UNSPECIFIED Status: Chronic (7) Anxiety disorder Code(s): F41.9 - ANXIETY DISORDER, UNSPECIFIED Status: Chronic Qualifiers: Anxiety disorder type: unspecified anxiety disorder Qualified Code(s): F41.9 - Anxiety disorder, unspecified Comment: Pt takes trazodone for anxiety disorder. Will reassess when she can take oral meds. (8) Dysphagia Code(s): R13.10 - DYSPHAGIA, UNSPECIFIED Status: Acute Comment: s/p peg 07/12 - Plan peg feeding -: meds via peg tube, free water 200ml qid -: On zosyn now, off cefepime, cultures taken on -ve -: had temp of 102 last 24hrs, likely from intracranial issues -: prognosis guarded, will d/w about new findings on CT brain * . Will need snf placement. Review of Systems - Medications/Allergies Allergies/Adverse Reactions: Allergies Allergy/AdvReac Type Severity Reaction Status Date / Time Unable to Assess Allergy Verified 07/06/18 14:45 Medications: Current Medications Acetaminophen (Tylenol Elixir) 1,000 mg PER TUBE Q6H PRN PRN Reason: Headache/Fever or Pain Last Admin: 07/13/18 06:03 Dose: 1,000 mg Acetaminophen (Tylenol) 650 mg [place] Q6H PRN PRN Reason: Headache/Fever or Pain Lipase/Protease/Amylase (Milind Genao 92155) 1 cap FS .PER PROTOCOL PRN PRN Reason: TUBE OCCLUSION PROTOCOL Last Admin: 07/11/18 12:53 Dose: 1 cap Famotidine (Pepcid) 20 mg SLOW IVP BID [facility] Last Admin: 07/13/18 09:22 Dose: 20 mg Levetiracetam 500 mg/ Device 100 mls @ 200 mls/hr IVPB Q12HR HECTOR Last Admin: 07/13/18 09:22 Dose: 100 mls Piperacillin Sod/Tazobactam (Sod 3.375 gm/ Sodium Chloride) 100 mls @ 200 mls/ hr IVPB 0400,1000,1600,2200 HECTOR Last Admin: 07/13/18 10:37 Dose: 100 mls Lorazepam (Ativan) 1 mg SLOW IVP Q4H PRN PRN Reason: Anxiety Last Admin: 07/10/18 08:15 Dose: 1 mg Sodium Bicarbonate (Bicarbonate, Sodium) 650 mg PER TUBE .PER PROTOCOL PRN PRN Reason: ENTERAL TUBE OCCLUSION Last Admin: 07/11/18 12:53 Dose: 650 mg Sodium Chloride (Flush - Normal Saline) 10 ml IVF Q12HR HECTOR Last Admin: 07/13/18 09:23 Dose: 10 ml Sodium Chloride (Flush - Normal Saline) 10 ml IVF PRN PRN PRN Reason: Saline Flush
[2018-07-13] MEDS ORDERED: Lorazepam 1 MG TAB PO PRN (11:13)
--- NOTE | 2018-07-13 13:59 | ULT ---
BILATERAL LOWER EXTREMITY VENOUS DOPPLER ULTRASOUND: HISTORY: Bilateral lower extremity edema and pain. TECHNIQUE: Benton scale ultrasound with color-flow and spectral Doppler imaging of the deep venous systems of the lower extremities was performed bilaterally. FINDINGS: There is good flow, compression, and augmentation noted in the common femoral, femoral, deep femoral, popliteal, posterior tibial, and greater saphenous veins on either side. IMPRESSION: No evidence of deep venous thrombosis in either lower extremity. POS: [facility]
--- NOTE | 2018-07-13 15:24 | OP ---
DATE OF SURGERY: 07/12/2018 OPERATIVE PROCEDURE: Esophagogastroduodenoscopy with endoscopic gastrostomy tube placement. PREOPERATIVE DIAGNOSIS: A 67-year-old female with acute cerebrovascular accident, not able to take anything via mouth. The patient hospitalized about 6 days ago. The patient is being on bhoff feeding for a while, but PEG tube placement. POSTOPERATIVE DIAGNOSES: 1. Gastric ulcer over the gastric body, nonbleedin. Successful placement of G-tube without any difficulty. PROCEDURE IN DETAIL: The patient was placed on her back and was given sedation by Anesthesia Departm ent. The patient already antibiotic and she had antibiotic dose at 3:00, so no additional anti biotic was given. A bite block was placed. A Pentax video gastroscope under direct vision passed do wn the oropharynx, past the GE junction, into the stomach and subsequently descending duodenum. The duodenal bulb and descending duodenum, no pathology seen. The gastric antrum, no pathology seen. Sh e had an ulceration measuring approximately 1 cm over the gastric body. The fundus, cardia, and esop hagus, no pathology seen. A gastrostomy tube site was marked by applying finger pressure over the ab dominal wall. The site was cleaned and surgically prepped. The site was anesthetized with 1% Xyloca ine infiltration. Over the site, a 16 Angiocath was advanced into the stomach. Through the Angiocat h, a guidewire was advanced into the stomach. The wire was grasped with polypectomy . The gas trostomy tube was connected at the end of the guidewire protruding outside of the mouth. The wire wa s pulled back retrograde and the tube left in place. Before the tube could be pulled out through the abdominal wall, a 0.5-0.75 cm sized incision was made in the skin and subcutaneous tissue. The demarco ent rescoped again to confirm proper placement of G-tube. There were no complications. The stomach was decompressed and the scope removed. RECOMMENDATION: No feeding until tomorrow morning. We will start the feeding .
[2018-07-13] MEDS: Atorvastatin Calcium 40 MG TAB PO SCH (21:49)
[2018-07-13] MEDS: levETIRAcetam 500 mg/5 ml Oral Solution PO SCH (21:49)
[2018-07-13] MEDS: Famotidine 20 MG TAB PO SCH (21:49)
--- NOTE | 2018-07-14 02:56 | PRG ---
DATE OF SERVICE: 07/13/2018 SUBJECTIVE: Rachel Kat is a very unfortunate female with acute cerebrovascular acciden t. She underwent thrombectomy on admission on 07/06/2018. Her mental status remains the same. Alth ough she is awake. She does not respond to any questions. . The patient underwent EGD and PEG tube placement yesterday. The patient is on tube feeding and tolerating tube feeding at 30 mL per h our. The PEG tube site appears healthy and the PEG tube bumper was loosened up. RECOMMENDATIONS: 1. Tube feeding as tolerated. 2. Start the patient on Protonix 40 mg once a day through the PEG tube. 3. We will sign off from today and if there is any problem, please call me back.
[2018-07-14 06:13] LABS: Band 24 % (5-11); Eosinophils 9 % (0-10); Hemoglobin 10.9 g/dL (12.0-16.0); Lymphocytes 11 % (21-51); MDiff Complete? YES; Mean Corpuscular HGB CONC 33.5 g/dL (32.0-36.0); Mean Corpuscular Hemoglobin 29.9 pg (27.0-31.0); Mean Corpuscular Volume 89.2 fL (78.0-98.0); Mean Platelet Volume 8.1 fL (7.4-10.4); Monocytes 7 % (0-10); Neutrophil 49 % (42-75); Platelet Count 156 thou/uL (130-400); RBC Distribution Width 12.9 % (11.5-14.5); Red Blood Cell (RBC) Count 3.64 mill/uL (4.20-5.40); White Blood Cell (WBC) Count 17.8 thou/uL (4.8-10.8)
[2018-07-14 06:21] LABS: Anion Gap 14 mmol/L (10-20); BUN (Urea Nitrogen) 15 mg/dL (9.8-20.1); Calc. Creatinine Clearance 87 mL/min (70-130); Calcium 8.2 mg/dL (7.8-10.44); Carbon Dioxide 19 mmol/L (23-31); Chloride 111 mmol/L (98-107); Estimated GFR-MDRD 81; Glucose 161 mg/dL (80-115); Potassium 3.6 mmol/L (3.5-5.1); Sodium 140 mmol/L (136-145)
[2018-07-14] MEDS: Polyethylene Glycol 3350 17 GM Packet PER TUBE SCH (09:26)
[2018-07-14] MEDS: Famotidine 20 MG TAB PO SCH ×2 (09:26→20:26)
[2018-07-14] MEDS: levETIRAcetam 500 mg/5 ml Oral Solution PO SCH ×2 (09:26→20:26)
--- NOTE | 2018-07-14 09:59 | PDOC.PN ---
- Subjective Encounter Start Date: 07/14/18 Encounter Start Time: 08:45 Subjective: awakens easily, seen moving all extremities -: not oriented, friend of hers in room -: recieving peg feeding - Objective Resuscitation Status: Resuscitation Status DNR:Do Not Resuscitate MAR Reviewed: Yes Vital Signs & Weight: Vital Signs (12 hours) Temp Pulse Resp BP Pulse Ox 07/14/18 07:40 99.3 F 86 16 136/65 96 07/14/18 04:00 99.5 F 93 16 135/61 96 07/13/18 23:48 98 F 93 14 133/64 94 L Weight Admit Weight 169 lb Weight 156 lb 12.8 oz Most Recent Monitor Data Heart Rate from ECG 95 NIBP 150/70 NIBP BP-Mean 91 Respiration from ECG 22 SpO2 99 I&O: 07/13/18 07/14/18 07/15/18 06:59 06:59 06:59 Intake Total 841 Balance 841 Result Diagrams: 07/14/18 04:33 07/14/18 04:33 Additional Labs: Accuchecks 07/14/18 07/14/18 07/13/18 05:57 00:04 18:04 POC Glucose 185 H 158 H 149 H 07/13/18 12:31 POC Glucose 119 H Phys Exam - Physical Examination HEENT: PERRLA, sclera anicteric Neck: no JVD, supple Respiratory: no wheezing, no rales Cardiovascular: RRR, no significant murmur Gastrointestinal: soft, non-tender, positive bowel sounds peg+ Musculoskeletal: no edema, pulses present Neurological: non-focal, moves all 4 limbs Dx/Plan (1) Acute encephalopathy Code(s): G93.40 - ENCEPHALOPATHY, UNSPECIFIED Status: Acute Comment: post cva (2) Acute right MCA stroke Code(s): I63.511 - CEREB INFRC D/T UNSP OCCLS OR STENOS OF RIGHT MID CEREB ART Status: Acute Comment: s/p tPA, [facility], has multiple infarcts on repeat imaging b/l (3) ICH (intracerebral hemorrhage) Code(s): I61.9 - NONTRAUMATIC INTRACEREBRAL HEMORRHAGE, UNSPECIFIED Status: Acute Qualifiers: Intracerebral hemorrhage etiology: nontraumatic Laterality: right Comment: right frontal lobe (4) Acute respiratory failure Code(s): J96.00 - ACUTE RESPIRATORY FAILURE, UNSP W HYPOXIA OR HYPERCAPNIA Status: Resolved Qualifiers: Respiratory failure complication: hypoxia Qualified Code(s): J96.01 - Acute respiratory failure with hypoxia Comment: extubated 07/07/2018 (5) PNA (pneumonia) Code(s): J18.9 - PNEUMONIA, UNSPECIFIED ORGANISM Status: Resolved Qualifiers: Pneumonia type: aspiration pneumonia (6) Dyslipidemia Code(s): E78.5 - HYPERLIPIDEMIA, UNSPECIFIED Status: Chronic (7) Anxiety disorder Code(s): F41.9 - ANXIETY DISORDER, UNSPECIFIED Status: Chronic Qualifiers: Anxiety disorder type: unspecified anxiety disorder Qualified Code(s): F41.9 - Anxiety disorder, unspecified Comment: Pt takes trazodone for anxiety disorder. Will reassess when she can take oral meds. (8) Dysphagia Code(s): R13.10 - DYSPHAGIA, UNSPECIFIED Status: Acute Comment: s/p peg 07/12 - Plan dc antibiotics -: no fever from yesterday -: is on lipitor, keppra -: usg venous doppler no dvt -: d/w yesterday reg CT brain findings, no intervention/meds * . Tolerating peg feeding, may increase to 40mls/hr Reglan bid to help with motility for now May tx to medical floor Is awaiting snf bed. Prognosis guarded, family is aware (brother POA). Review of Systems - Medications/Allergies Allergies/Adverse Reactions: Allergies Allergy/AdvReac Type Severity Reaction Status Date / Time Unable to Assess Allergy Verified 07/06/18 14:45 Medications: Current Medications Acetaminophen (Tylenol Elixir) 1,000 mg PER TUBE Q6H PRN PRN Reason: Headache/Fever or Pain Last Admin: 07/13/18 06:03 Dose: 1,000 mg Acetaminophen (Tylenol) 650 mg [place] Q6H PRN PRN Reason: Headache/Fever or Pain Lipase/Protease/Amylase (Milind Genao 27360) 1 cap FS .PER PROTOCOL PRN PRN Reason: TUBE OCCLUSION PROTOCOL Last Admin: 07/11/18 12:53 Dose: 1 cap Atorvastatin Calcium (Lipitor) 40 mg PO HS [facility] Last Admin: 07/13/18 21:49 Dose: 40 mg Famotidine (Pepcid) 20 mg PO BID [facility] Last Admin: 07/14/18 09:26 Dose: 20 mg Levetiracetam (Keppra Oral Solution) 500 mg PO BID [facility] Last Admin: 07/14/18 09:26 Dose: 500 mg Lorazepam (Ativan) 1 mg PO Q4H PRN PRN Reason: Anxiety/Agitation Polyethylene Glycol (Miralax) 17 gm PER TUBE DAILY [facility] Last Admin: 07/14/18 09:26 Dose: 17 gm Sodium Bicarbonate (Bicarbonate, Sodium) 650 mg PER TUBE .PER PROTOCOL PRN PRN Reason: ENTERAL TUBE OCCLUSION Last Admin: 07/11/18 12:53 Dose: 650 mg Sodium Chloride (Flush - Normal Saline) 10 ml IVF Q12HR [facility] Last Admin: 07/14/18 09:27 Dose: 10 ml Sodium Chloride (Flush - Normal Saline) 10 ml IVF PRN PRN PRN Reason: Saline Flush
[2018-07-14] MEDS: Atorvastatin Calcium 40 MG TAB PO SCH (20:26)
[2018-07-14] MEDS: Metoclopramide HCl 10 MG TAB PO SCH (20:26)
[2018-07-15 04:34] LABS: Anion Gap 14 mmol/L (10-20); BUN (Urea Nitrogen) 15 mg/dL (9.8-20.1); Calc. Creatinine Clearance 87 mL/min (70-130); Calcium 8.3 mg/dL (7.8-10.44); Carbon Dioxide 23 mmol/L (23-31); Chloride 107 mmol/L (98-107); Estimated GFR-MDRD 81; Glucose 158 mg/dL (80-115); Potassium 3.3 mmol/L (3.5-5.1); Sodium 141 mmol/L (136-145)
[2018-07-15 05:28] LABS: Band 21 % (5-11); Eosinophils 4 % (0-10); Hemoglobin 11.1 g/dL (12.0-16.0); Lymphocytes 10 % (21-51); MDiff Complete? YES; Mean Corpuscular HGB CONC 33.1 g/dL (32.0-36.0); Mean Corpuscular Hemoglobin 29.3 pg (27.0-31.0); Mean Corpuscular Volume 88.3 fL (78.0-98.0); Mean Platelet Volume 8.4 fL (7.4-10.4); Monocytes 8 % (0-10); Neutrophil 57 % (42-75); Platelet Count 121 thou/uL (130-400); RBC Distribution Width 12.9 % (11.5-14.5); Red Blood Cell (RBC) Count 3.78 mill/uL (4.20-5.40); White Blood Cell (WBC) Count 19.1 thou/uL (4.8-10.8)
[2018-07-15] MEDS: levETIRAcetam 500 mg/5 ml Oral Solution PO SCH ×2 (09:40→21:52)
[2018-07-15] MEDS: Metoclopramide HCl 10 MG TAB PO SCH ×2 (09:40→21:52)
[2018-07-15] MEDS: Famotidine 20 MG TAB PO SCH ×2 (09:41→21:52)
[2018-07-15] MEDS: Polyethylene Glycol 3350 17 GM Packet PER TUBE SCH (09:41)
--- NOTE | 2018-07-15 09:50 | PDOC.EVN ---
Event Note - Event Note Event Note: pt admitted for stroke and currently is awake but unable to make decisions for herself. Her brother is her POA who is making decisions on her behalf.
[2018-07-15 13:04] LABS: Bilirubin Negative (Negative); Blood, Urine Moderate (Negative); Clarity CLEAR (Clear); Glucose, Urine (Dipstick) 250 mg/dL (Negative); Leukocyte Negative (Negative); Nitrite Negative (Negative); Protein, Urine (Dipstick) 100 mg/dL (Neg-Trace); Specific Gravity, Urine 1.028 (1.002-1.036); Urobilinogen 0.2 mg/dL (0.2-1.0)
[2018-07-15 13:06] LABS: Bacteria/HPF None Seen HPF (None Seen); Pathc Cast-AUWi Flag 1.45 (0-2.49)
--- NOTE | 2018-07-15 16:17 | RAD ---
PORTABLE AP CHEST XRAY: DATE: 07/15/18. HISTORY: Fever. COMPARISON: 07/13/16. FINDINGS: There is increased density as well as linear densities in the medial aspect left lung base. This may represent superimposition of structures and atelectasis, but developing pneumonia is a possibility. Followup to resolution is recommended. The right lung is clear. There is mild elevation of the rig ht hemidiaphragm. Cardiac silhouette and pulmonary vasculature are magnified by projection. Vascula r calcification is seen in the thoracic aorta. IMPRESSION: Increased density left infrahilar region with associated linear densities. These findings may be att ributable to superimposition of structures, but pneumonia is a possibility. Followup to resolution i s recommended. A followup PA and lateral chest x-ray is recommended. POS: [facility]
--- NOTE | 2018-07-15 19:58 | PDOC.PN ---
- Subjective Encounter Start Date: 07/15/18 Encounter Start Time: 09:00 Subjective: pt awake in bed unable to communicate - Objective Resuscitation Status: Resuscitation Status DNR:Do Not Resuscitate Vital Signs & Weight: Vital Signs (12 hours) Temp Pulse Pulse Pulse Resp BP BP 07/15/18 16:05 97.3 F L 73 16 07/15/18 11:59 98.5 F 80 16 07/15/18 11:30 91 94 151/72 H 139/81 07/15/18 08:45 07/15/18 08:00 98.1 F 88 20 BP Pulse Ox 07/15/18 16:05 124/58 L 98 07/15/18 11:59 142/68 H 94 L 07/15/18 11:30 07/15/18 08:45 95 07/15/18 08:00 159/67 H 93 L Weight Admit Weight 169 lb Weight 155 lb 12.8 oz Most Recent Monitor Data Heart Rate from ECG 95 NIBP 150/70 NIBP BP-Mean 91 Respiration from ECG 22 SpO2 99 I&O: 07/14/18 07/15/18 07/16/18 06:59 06:59 06:59 Intake Total 841 2360 Output Total 200 Balance 841 2360 -200 Result Diagrams: 07/15/18 03:33 07/15/18 03:33 Additional Labs: Accuchecks 07/15/18 07/15/18 07/15/18 18:04 12:10 06:11 POC Glucose 121 H 154 H 183 H 07/15/18 00:01 POC Glucose 154 H Phys Exam - Physical Examination Neck: no nodes, no JVD, supple, full ROM Respiratory: no wheezing, no rales, no rhonchi, wheezing present, clear to auscultation bilateral Cardiovascular: RRR, no significant murmur, no rub, gallop, irregular Gastrointestinal: soft, non-tender, no distention, positive bowel sounds Musculoskeletal: no edema, pulses present, edema present pt moves all ext but is non verbal Dx/Plan (1) Acute encephalopathy Code(s): G93.40 - ENCEPHALOPATHY, UNSPECIFIED Status: Acute Comment: post cva (2) Acute right MCA stroke Code(s): I63.511 - CEREB INFRC D/T UNSP OCCLS OR STENOS OF RIGHT MID CEREB ART Status: Acute Comment: s/p tPA, [facility] procedure, has multiple infarcts on repeat imaging b/l (3) ICH (intracerebral hemorrhage) Code(s): I61.9 - NONTRAUMATIC INTRACEREBRAL HEMORRHAGE, UNSPECIFIED Status: Acute Qualifiers: Intracerebral hemorrhage etiology: nontraumatic Laterality: right Comment: right frontal lobe (4) PNA (pneumonia) Code(s): J18.9 - PNEUMONIA, UNSPECIFIED ORGANISM Status: Resolved Qualifiers: Pneumonia type: aspiration pneumonia (5) Leukocytosis Code(s): D72.829 - ELEVATED WHITE BLOOD CELL COUNT, UNSPECIFIED Status: Acute - Plan pt has been off mittons -: UA negative but cxr possible infiltrate on left side -: she has significant elevated wbc with bands -: will start her on zosyn and see how she does in am * . Not sure if her elevated wbc is due to her recent stroke vs pneumonia. if her wbc improve in am most likely pneumonia. Review of Systems - Review of Systems Other: unable to do - Medications/Allergies Allergies/Adverse Reactions: Allergies Allergy/AdvReac Type Severity Reaction Status Date / Time Unable to Assess Allergy Verified 07/06/18 14:45 Medications: Current Medications Acetaminophen (Tylenol Elixir) 1,000 mg PER TUBE Q6H PRN PRN Reason: Headache/Fever or Pain Last Admin: 07/13/18 06:03 Dose: 1,000 mg Acetaminophen (Tylenol) 650 mg [place] Q6H PRN PRN Reason: Headache/Fever or Pain Lipase/Protease/Amylase ([place] [id number]) 1 cap FS .PER PROTOCOL PRN PRN Reason: TUBE OCCLUSION PROTOCOL Last Admin: 07/11/18 12:53 Dose: 1 cap Atorvastatin Calcium (Lipitor) 40 mg PO HS [facility] Last Admin: 07/14/18 20:26 Dose: 40 mg Famotidine (Pepcid) 20 mg PO BID [facility] Last Admin: 07/15/18 09:41 Dose: 20 mg Piperacillin Sod/Tazobactam (Sod 3.375 gm/ Sodium Chloride) 100 mls @ 200 mls/ hr IVPB Q6HR [facility] Levetiracetam (Keppra Oral Solution) 500 mg PO BID [facility] Last Admin: 07/15/18 09:40 Dose: 500 mg Lorazepam (Ativan) 1 mg PO Q4H PRN PRN Reason: Anxiety/Agitation Metoclopramide HCl (Reglan) 10 mg PO BID [facility] Last Admin: 07/15/18 09:40 Dose: 10 mg Polyethylene Glycol (Miralax) 17 gm PER TUBE DAILY [facility] Last Admin: 07/15/18 09:41 Dose: 17 gm Sodium Bicarbonate (Bicarbonate, Sodium) 650 mg PER TUBE .PER PROTOCOL PRN PRN Reason: ENTERAL TUBE OCCLUSION Last Admin: 07/11/18 12:53 Dose: 650 mg Sodium Chloride (Flush - Normal Saline) 10 ml IVF Q12HR [facility] Last Admin: 07/15/18 09:41 Dose: 10 ml Sodium Chloride (Flush - Normal Saline) 10 ml IVF PRN PRN PRN Reason: Saline Flush
[2018-07-15] MEDS: Piperacillin/Tazobactam 3.375 GM in Sodium Chloride 0.9% 100 ML IVPB SCH (21:50)
[2018-07-15] MEDS: Atorvastatin Calcium 40 MG TAB PO SCH (21:52)
[2018-07-16] MEDS: Acetaminophen 650 MG/20.3 ML UDCUP PER TUBE PRN (02:52)
[2018-07-16] MEDS: Piperacillin/Tazobactam 3.375 GM in Sodium Chloride 0.9% 100 ML IVPB SCH ×4 (03:17→20:09)
[2018-07-16 04:43] LABS: #Basophils 0.1 thou/uL (0.0-0.2); #Eosinphils 1.1 thou/uL (0.0-0.7); #Lymphocytes 1.8 thou/uL (1.20-3.40); #Monocytes 1.7 thou/uL (0.11-0.59); #Neutrophils 13.6 thou/uL (1.40-6.50); %Basophils 0.3 % (0.0-1.0); %Eosinophils 6.2 % (0.0-10.0); %Lymphocytes 9.6 % (21.0-51.0); %Monocytes 9.2 % (0.0-10.0); %Neutrophils 74.6 % (42.0-75.0); Hemoglobin 10.4 g/dL (12.0-16.0); Mean Corpuscular HGB CONC 31.9 g/dL (32.0-36.0); Mean Corpuscular Hemoglobin 28.8 pg (27.0-31.0); Mean Corpuscular Volume 90.4 fL (78.0-98.0); Mean Platelet Volume 8.1 fL (7.4-10.4); Platelet Count 144 thou/uL (130-400); RBC Distribution Width 12.9 % (11.5-14.5); White Blood Cell (WBC) Count 18.3 thou/uL (4.8-10.8)
[2018-07-16 05:14] LABS: Anion Gap 15 mmol/L (10-20); BUN (Urea Nitrogen) 17 mg/dL (9.8-20.1); Calc. Creatinine Clearance 79 mL/min (70-130); Calcium 8.3 mg/dL (7.8-10.44); Carbon Dioxide 22 mmol/L (23-31); Chloride 107 mmol/L (98-107); Estimated GFR-MDRD 73; Glucose 165 mg/dL (80-115); Potassium 3.7 mmol/L (3.5-5.1); Sodium 140 mmol/L (136-145)
[2018-07-16] MEDS: Famotidine 20 MG TAB PO SCH ×2 (08:35→21:33)
[2018-07-16] MEDS: Polyethylene Glycol 3350 17 GM Packet PER TUBE SCH (08:35)
[2018-07-16] MEDS: levETIRAcetam 500 mg/5 ml Oral Solution PO SCH ×2 (08:35→21:33)
[2018-07-16] MEDS: Metoclopramide HCl 10 MG TAB PO SCH ×2 (08:35→21:34)
--- NOTE | 2018-07-16 13:00 | PDOC.PN ---
- Subjective Encounter Start Date: 07/16/18 Encounter Start Time: 07:20 Pt seen for followup re: right mca territory CVA. Pt not answering questions, unable to complete ROS. - Objective Resuscitation Status: Resuscitation Status DNR:Do Not Resuscitate MAR Reviewed: Yes Vital Signs & Weight: Vital Signs (12 hours) Temp Pulse Resp BP Pulse Ox 07/16/18 11:48 98.0 F 70 16 127/66 95 07/16/18 07:54 97.4 F L 92 18 115/59 L 92 L 07/16/18 04:00 99.0 F 81 16 97/51 L 92 L Weight Admit Weight 169 lb Weight 156 lb Most Recent Monitor Data Heart Rate from ECG 95 NIBP 150/70 NIBP BP-Mean 91 Respiration from ECG 22 SpO2 99 I&O: 07/15/18 07/16/18 07/17/18 06:59 06:59 06:59 Intake Total 2360 2955 240 Output Total 400 Balance 2360 2555 240 Result Diagrams: 07/16/18 03:50 07/16/18 03:49 Additional Labs: Accuchecks 07/16/18 07/16/18 07/15/18 05:42 00:13 18:04 POC Glucose 157 H 166 H 121 H Phys Exam - Physical Examination Constitutional: NAD HEENT: moist MMs Neck: supple L base crackles Cardiovascular: RRR Gastrointestinal: soft, non-tender, no distention, positive bowel sounds G-tube Neurological: moves all 4 limbs Deviation from normal: Unable to assess Dx/Plan (1) Acute right MCA stroke Code(s): I63.511 - CEREB INFRC D/T UNSP OCCLS OR STENOS OF RIGHT MID CEREB ART Status: Acute Comment: s/p tPA and [facility] procedure. Multiple kaylee infarcts on repeat imaging. (2) ICH (intracerebral hemorrhage) Code(s): I61.9 - NONTRAUMATIC INTRACEREBRAL HEMORRHAGE, UNSPECIFIED Status: Acute Qualifiers: Intracerebral hemorrhage etiology: nontraumatic Laterality: right Comment: right frontal lobe (3) Leukocytosis Code(s): D72.829 - ELEVATED WHITE BLOOD CELL COUNT, UNSPECIFIED Status: Acute Comment: etiology unclear. CXR suggestive of pneumonia. (4) Dyslipidemia Code(s): E78.5 - HYPERLIPIDEMIA, UNSPECIFIED Status: Chronic Comment: continue Lipitor (5) PNA (pneumonia) Code(s): J18.9 - PNEUMONIA, UNSPECIFIED ORGANISM Status: Suspected Qualifiers: Pneumonia type: aspiration pneumonia Comment: continue Zosyn. Repeat Chest x-ray - Plan * . Review of Systems - Medications/Allergies Allergies/Adverse Reactions: Allergies Allergy/AdvReac Type Severity Reaction Status Date / Time Unable to Assess Allergy Verified 07/06/18 14:45 Medications: Current Medications Acetaminophen (Tylenol Elixir) 1,000 mg PER TUBE Q6H PRN PRN Reason: Headache/Fever or Pain Last Admin: 07/16/18 02:52 Dose: 1,000 mg Acetaminophen (Tylenol) 650 mg [place] Q6H PRN PRN Reason: Headache/Fever or Pain Lipase/Protease/Amylase ([place] [id number]) 1 cap FS .PER PROTOCOL PRN PRN Reason: TUBE OCCLUSION PROTOCOL Last Admin: 07/11/18 12:53 Dose: 1 cap Atorvastatin Calcium (Lipitor) 40 mg PO HS [facility] Last Admin: 07/15/18 21:52 Dose: 40 mg Famotidine (Pepcid) 20 mg PO BID [facility] Last Admin: 07/16/18 08:35 Dose: 20 mg Piperacillin Sod/Tazobactam (Sod 3.375 gm/ Sodium Chloride) 100 mls @ 200 mls/ hr IVPB 0200,0800,1400,2000 [facility] Last Admin: 07/16/18 08:35 Dose: 100 mls Levetiracetam (Keppra Oral Solution) 500 mg PO BID [facility] Last Admin: 07/16/18 08:35 Dose: 500 mg Lorazepam (Ativan) 1 mg PO Q4H PRN PRN Reason: Anxiety/Agitation Metoclopramide HCl (Reglan) 10 mg PO BID [facility] Last Admin: 07/16/18 08:35 Dose: 10 mg Polyethylene Glycol (Miralax) 17 gm PER TUBE DAILY [facility] Last Admin: 07/16/18 08:35 Dose: 17 gm Sodium Bicarbonate (Bicarbonate, Sodium) 650 mg PER TUBE .PER PROTOCOL PRN PRN Reason: ENTERAL TUBE OCCLUSION Last Admin: 07/11/18 12:53 Dose: 650 mg Sodium Chloride (Flush - Normal Saline) 10 ml IVF Q12HR [facility] Last Admin: 07/16/18 08:36 Dose: 10 ml Sodium Chloride (Flush - Normal Saline) 10 ml IVF PRN PRN PRN Reason: Saline Flush
[2018-07-16] MEDS: Atorvastatin Calcium 40 MG TAB PO SCH (21:33)
[2018-07-17] MEDS: Piperacillin/Tazobactam 3.375 GM in Sodium Chloride 0.9% 100 ML IVPB SCH ×4 (01:18→20:27)
[2018-07-17 05:22] LABS: Band 13 % (5-11); Eosinophils 7 % (0-10); Hemoglobin 10.9 g/dL (12.0-16.0); Lymphocytes 14 % (21-51); MDiff Complete? YES; Mean Corpuscular HGB CONC 33.1 g/dL (32.0-36.0); Mean Corpuscular Hemoglobin 29.6 pg (27.0-31.0); Mean Corpuscular Volume 89.2 fL (78.0-98.0); Mean Platelet Volume 8.1 fL (7.4-10.4); Monocytes 8 % (0-10); Neutrophil 58 % (42-75); Platelet Count 157 thou/uL (130-400); RBC Distribution Width 12.9 % (11.5-14.5); Red Blood Cell (RBC) Count 3.69 mill/uL (4.20-5.40); White Blood Cell (WBC) Count 20.6 thou/uL (4.8-10.8)
[2018-07-17 05:23] LABS: Anion Gap 16 mmol/L (10-20); BUN (Urea Nitrogen) 15 mg/dL (9.8-20.1); Calc. Creatinine Clearance 77 mL/min (70-130); Calcium 8.1 mg/dL (7.8-10.44); Carbon Dioxide 20 mmol/L (23-31); Chloride 104 mmol/L (98-107); Estimated GFR-MDRD 71; Glucose 159 mg/dL (80-115); Sodium 136 mmol/L (136-145)
[2018-07-17] MEDS: levETIRAcetam 500 mg/5 ml Oral Solution PO SCH ×2 (08:40→20:34)
[2018-07-17] MEDS: Famotidine 20 MG TAB PO SCH ×2 (08:40→20:35)
[2018-07-17] MEDS: Metoclopramide HCl 10 MG TAB PO SCH ×2 (08:40→20:34)
[2018-07-17] MEDS: Polyethylene Glycol 3350 17 GM Packet PER TUBE SCH (08:41)
--- NOTE | 2018-07-17 13:23 | PDOC.PN ---
- Subjective Encounter Start Date: 07/17/18 Encounter Start Time: 07:40 Pt seen for followup re: R MCA CVA. Nonverbal, unable to complete ROS. - Objective Resuscitation Status: Resuscitation Status DNR:Do Not Resuscitate MAR Reviewed: Yes Vital Signs & Weight: Vital Signs (12 hours) Temp Pulse Resp BP Pulse Ox 07/17/18 12:00 99.8 F H 91 20 130/66 95 07/17/18 08:00 100.1 F H 95 20 126/60 95 07/17/18 04:00 98.2 F 100 17 127/58 L 96 Weight Admit Weight 169 lb Weight 153 lb 3 oz Most Recent Monitor Data Heart Rate from ECG 95 NIBP 150/70 NIBP BP-Mean 91 Respiration from ECG 22 SpO2 99 I&O: 07/16/18 07/17/18 07/18/18 06:59 06:59 06:59 Intake Total 2955 2731 895 Output Total 400 Balance 2555 2731 895 Result Diagrams: 07/17/18 04:31 07/17/18 04:31 Additional Labs: Accuchecks 07/17/18 07/17/18 07/17/18 11:55 05:29 00:44 POC Glucose 139 H 107 131 H labs reviewed by me Phys Exam - Physical Examination Constitutional: NAD HEENT: moist MMs Neck: supple Respiratory: clear to auscultation bilateral Cardiovascular: RRR Gastrointestinal: soft G-tube Musculoskeletal: no edema Neurological: moves all 4 limbs Psychiatric: normal affect Dx/Plan (1) Acute right MCA stroke Code(s): I63.511 - CEREB INFRC D/T UNSP OCCLS OR STENOS OF RIGHT MID CEREB ART Status: Acute Comment: Pt received tPA and had [facility] procedure, has multiple bilateral infarcts on repeat imaging. (2) ICH (intracerebral hemorrhage) Code(s): I61.9 - NONTRAUMATIC INTRACEREBRAL HEMORRHAGE, UNSPECIFIED Status: Acute Qualifiers: Intracerebral hemorrhage etiology: nontraumatic Laterality: right Comment: right frontal lobe hemorrhage (3) Leukocytosis Code(s): D72.829 - ELEVATED WHITE BLOOD CELL COUNT, UNSPECIFIED Status: Acute Comment: slightly worse today, ? due to pneumonia (4) Dyslipidemia Code(s): E78.5 - HYPERLIPIDEMIA, UNSPECIFIED Status: Chronic Comment: continue Lipitor (5) PNA (pneumonia) Code(s): J18.9 - PNEUMONIA, UNSPECIFIED ORGANISM Status: Suspected Qualifiers: Pneumonia type: aspiration pneumonia Comment: Pt continues to spike fevers on Zosyn. Add vancomycin and metronidazole. - Plan continue antibiotics, PT/OT * . Review of Systems - Medications/Allergies Allergies/Adverse Reactions: Allergies Allergy/AdvReac Type Severity Reaction Status Date / Time Unable to Assess Allergy Verified 07/06/18 14:45 Medications: Current Medications Acetaminophen (Tylenol Elixir) 1,000 mg PER TUBE Q6H PRN PRN Reason: Headache/Fever or Pain Last Admin: 07/16/18 02:52 Dose: 1,000 mg Acetaminophen (Tylenol) 650 mg [place] Q6H PRN PRN Reason: Headache/Fever or Pain Lipase/Protease/Amylase ([place] [id number]) 1 cap FS .PER PROTOCOL PRN PRN Reason: TUBE OCCLUSION PROTOCOL Last Admin: 07/11/18 12:53 Dose: 1 cap Atorvastatin Calcium (Lipitor) 40 mg PO HS [facility] Last Admin: 07/16/18 21:33 Dose: 40 mg Famotidine (Pepcid) 20 mg PO BID [facility] Last Admin: 07/17/18 08:40 Dose: 20 mg Piperacillin Sod/Tazobactam (Sod 3.375 gm/ Sodium Chloride) 100 mls @ 200 mls/ hr IVPB 0200,0800,1400,2000 [facility] Last Admin: 07/17/18 08:40 Dose: 100 mls Levetiracetam (Keppra Oral Solution) 500 mg PO BID [facility] Last Admin: 07/17/18 08:40 Dose: 500 mg Lorazepam (Ativan) 1 mg PO Q4H PRN PRN Reason: Anxiety/Agitation Metoclopramide HCl (Reglan) 10 mg PO BID [facility] Last Admin: 07/17/18 08:40 Dose: 10 mg Polyethylene Glycol (Miralax) 17 gm PER TUBE DAILY [facility] Last Admin: 07/17/18 08:41 Dose: Not Given Sodium Bicarbonate (Bicarbonate, Sodium) 650 mg PER TUBE .PER PROTOCOL PRN PRN Reason: ENTERAL TUBE OCCLUSION Last Admin: 07/11/18 12:53 Dose: 650 mg Sodium Chloride (Flush - Normal Saline) 10 ml IVF Q12HR [facility] Last Admin: 07/17/18 08:40 Dose: 10 ml Sodium Chloride (Flush - Normal Saline) 10 ml IVF PRN PRN PRN Reason: Saline Flush
[2018-07-17] MEDS ORDERED: RENALLY ADJUST ABX IVPB PRN (13:31)
[2018-07-17] MEDS: metroNIDAZOLE 500 MG in Premix Bag 1 BAG IVPB SCH ×2 (14:05→22:43)
[2018-07-17] MEDS: Vancomycin HCl 1 GM in Premix Bag 1 BAG IVPB SCH (16:46)
[2018-07-17] MEDS: Atorvastatin Calcium 40 MG TAB PO SCH (20:35)
[2018-07-18] MEDS: Piperacillin/Tazobactam 3.375 GM in Sodium Chloride 0.9% 100 ML IVPB SCH ×4 (01:59→20:54)
[2018-07-18] MEDS: Vancomycin HCl 1 GM in Premix Bag 1 BAG IVPB SCH ×2 (03:18→15:17)
[2018-07-18 05:46] LABS: Band 26 % (5-11); Eosinophils 1 % (0-10); Hemoglobin 10.3 g/dL (12.0-16.0); Lymphocytes 12 % (21-51); MDiff Complete? YES; Mean Corpuscular HGB CONC 33.3 g/dL (32.0-36.0); Mean Corpuscular Hemoglobin 29.7 pg (27.0-31.0); Mean Corpuscular Volume 89.1 fL (78.0-98.0); Mean Platelet Volume 8.3 fL (7.4-10.4); Monocytes 7 % (0-10); Neutrophil 54 % (42-75); Platelet Count 150 thou/uL (130-400); RBC Distribution Width 12.9 % (11.5-14.5); Red Blood Cell (RBC) Count 3.48 mill/uL (4.20-5.40); White Blood Cell (WBC) Count 21.4 thou/uL (4.8-10.8)
[2018-07-18 05:49] LABS: Anion Gap 17 mmol/L (10-20); BUN (Urea Nitrogen) 13 mg/dL (9.8-20.1); Calc. Creatinine Clearance 78 mL/min (70-130); Calcium 7.9 mg/dL (7.8-10.44); Carbon Dioxide 19 mmol/L (23-31); Chloride 102 mmol/L (98-107); Estimated GFR-MDRD 70; Glucose 129 mg/dL (80-115); Potassium 4.2 mmol/L (3.5-5.1); Sodium 134 mmol/L (136-145)
[2018-07-18] MEDS: metroNIDAZOLE 500 MG in Premix Bag 1 BAG IVPB SCH ×3 (07:27→22:08)
--- NOTE | 2018-07-18 09:23 | RAD ---
PORTABLE CHEST: HISTORY: Cough. FINDINGS: Heart size is within normal limits. There are atherosclerotic changes of the aorta. The lungs are c lear of any infiltrative process. IMPRESSION: No active intrathoracic disease. POS: [facility]
[2018-07-18] MEDS: Polyethylene Glycol 3350 17 GM Packet PER TUBE SCH (09:50)
[2018-07-18] MEDS: levETIRAcetam 500 mg/5 ml Oral Solution PO SCH ×2 (09:50→22:08)
[2018-07-18] MEDS: Famotidine 20 MG TAB PO SCH ×2 (09:50→22:08)
[2018-07-18] MEDS: Metoclopramide HCl 10 MG TAB PO SCH ×2 (09:50→22:08)
[2018-07-18] MEDS ORDERED: Lorazepam 2 MG/ML VIAL ONE (11:42)
[2018-07-18] MEDS ORDERED: Metoprolol Tartrate 5 MG/5 ML VIAL ONE (11:44)
--- NOTE | 2018-07-18 15:03 | PRG ---
DATE OF SERVICE: 07/18/2018 SUBJECTIVE: A 67-year-old female well known to service who has not been seen now for an extended period of time. She had a PEG placed on 07/12/2018. She was on the stroke unit when apparently the nurses taking care of her noticed that she has slight change in mental status. She proceeded to vomit, but apparently did not have any desaturation. Jacob lynn was called. Transfer to the MICU. Sat 98% on room air, pulse 118, blood pressure 130/80, respiration rate 18. She appears to be in no acute distress. She is aphasic, is not moving her right side. She has had a right temporal lobe hemorrhage. Last CT of the brain was done on 07/13/2018 which showed an increasing previously noted right posterior frontal hemorrhage. Additional areas of acute infarct in the right and left orthodox and right parietal regions. There is new hemorrhage seen in the right anterior temporal lobe. No recent CT has been ordered and she has been made a DNR. OBJECTIVE: LUNGS: Otherwise, chest reveals no wheezing or rhonchi. CARDIAC: Normal S1, S2. ABDOMEN: Abdomen is soft. LABORATORY DATA: White count was up to 101.2. She was started on broad- spectrum antibiotics including Zosyn, vancomycin and Flagyl, still on Keppra. IMPRESSION: 1. Status post extensive right temporoparietal cerebrovascular accident and hemorrhage. 2. Leukocytosis, fever, possibly pneumonia, I do not seeany new infilterates on _ x-rays. 3. DO NOT RESUSCITATE. PLAN: Pulmonary Critical Care will follow along the MICU. Agree with broad- spectrum antibiotics. We will deescalate once we get the cultures back. ELIEL
--- NOTE | 2018-07-18 15:07 | RAD ---
PORTABLE CHEST: DATE: 07/18/18. PROVIDED CLINICAL HISTORY: Respiratory distress. FINDINGS: Comparison 07/18/18 at 6:54 a.m. Cardiac and mediastinal silhouette are unchanged in appearance. Ext ernal defibrillator pads overlie the chest. Vascular calcification is seen involving the aortic arch . Left lung base is suboptimally evaluated. No focal consolidation, pleural fluid, or pneumothorax apparent. IMPRESSION: No evidence for an acute cardiopulmonary process with limitations as above. POS: [facility]
--- NOTE | 2018-07-18 16:42 | PDOC.PN ---
- Subjective Encounter Start Date: 07/18/18 Encounter Start Time: 14:00 Pt seen various time earlier today including during Code [place]. Pt nonverbal, unable to complete ROS. - Objective Resuscitation Status: Resuscitation Status DNR:Do Not Resuscitate MAR Reviewed: Yes Vital Signs & Weight: Vital Signs (12 hours) Temp Pulse Pulse Pulse Pulse Pulse Pulse 07/18/18 15:11 88 07/18/18 14:50 07/18/18 12:00 98.9 F 98 07/18/18 11:29 148 H 147 H 141 H 114 H 104 H 07/18/18 10:08 07/18/18 09:15 07/18/18 08:00 99.1 F 99 Pulse Pulse Resp Resp Resp Resp Resp 07/18/18 15:11 20 07/18/18 14:50 07/18/18 12:00 20 07/18/18 11:29 33 H 38 H 33 H 25 H 07/18/18 10:08 95 99 07/18/18 09:15 07/18/18 08:00 16 Resp BP BP BP BP BP BP 07/18/18 15:11 07/18/18 14:50 07/18/18 12:00 07/18/18 11:29 21 H 156/132 H 139/123 H 158/88 H 148/91 H 139/79 120/68 07/18/18 10:08 07/18/18 09:15 07/18/18 08:00 BP BP BP Pulse Ox Pulse Ox Pulse Ox Pulse Ox 07/18/18 15:11 130/65 94 L 07/18/18 14:50 96 07/18/18 12:00 126/61 97 07/18/18 11:29 100 100 100 07/18/18 10:08 145/75 H 133/58 L 07/18/18 09:15 95 07/18/18 08:00 133/58 L 95 Pulse Ox Pulse Ox Pulse Ox Pulse Ox Pulse Ox 07/18/18 15:11 07/18/18 14:50 07/18/18 12:00 07/18/18 11:29 100 100 100 07/18/18 10:08 95 95 07/18/18 09:15 07/18/18 08:00 Weight Admit Weight 169 lb Weight 158 lb 12.8 oz Most Recent Monitor Data Heart Rate from ECG 95 NIBP 150/70 NIBP BP-Mean 91 Respiration from ECG 22 SpO2 99 I&O: 07/17/18 07/18/18 07/19/18 06:59 06:59 06:59 Intake Total 2731 2325 Balance 2731 2321 Result Diagrams: 07/18/18 04:22 07/18/18 04:22 Additional Labs: Accuchecks 07/18/18 07/18/18 07/18/18 16:16 11:33 06:15 POC Glucose 119 H 109 101 07/17/18 07/17/18 21:39 16:37 POC Glucose 163 H 145 H Labs reviewed by me Phys Exam - Physical Examination Constitutional: NAD HEENT: moist MMs Neck: supple Bibasal crackles Cardiovascular: RRR Gastrointestinal: soft PEG tube R weakness Psychiatric: normal affect Dx/Plan (1) Aspiration pneumonia Code(s): J69.0 - PNEUMONITIS DUE TO INHALATION OF FOOD AND VOMIT Status: Acute Comment: Pt vomited today, likely aspirated, continue Zosyn, vancomycin and metronidazole. (2) Acute right MCA stroke Code(s): I63.511 - CEREB INFRC D/T UNSP OCCLS OR STENOS OF RIGHT MID CEREB ART Status: Acute Comment: s/p tPA and had [facility] procedure, has multiple bilateral infarcts on repeat imaging. (3) ICH (intracerebral hemorrhage) Code(s): I61.9 - NONTRAUMATIC INTRACEREBRAL HEMORRHAGE, UNSPECIFIED Status: Acute Qualifiers: Intracerebral hemorrhage etiology: nontraumatic Laterality: right Comment: right frontal lobe bleed (4) Leukocytosis Code(s): D72.829 - ELEVATED WHITE BLOOD CELL COUNT, UNSPECIFIED Status: Acute Comment: ? due to pneumonia (5) Dyslipidemia Code(s): E78.5 - HYPERLIPIDEMIA, UNSPECIFIED Status: Chronic Comment: on Lipitor - Plan * . Review of Systems - Medications/Allergies Allergies/Adverse Reactions: Allergies Allergy/AdvReac Type Severity Reaction Status Date / Time Unable to Assess Allergy Verified 07/06/18 14:45 Medications: Current Medications Acetaminophen (Tylenol Elixir) 1,000 mg PER TUBE Q6H PRN PRN Reason: Headache/Fever or Pain Last Admin: 07/16/18 02:52 Dose: 1,000 mg Acetaminophen (Tylenol) 650 mg [place] Q6H PRN PRN Reason: Headache/Fever or Pain Last Admin: 07/18/18 09:51 Dose: 650 mg Lipase/Protease/Amylase ([place] [id number]) 1 cap FS .PER PROTOCOL PRN PRN Reason: TUBE OCCLUSION PROTOCOL Last Admin: 07/11/18 12:53 Dose: 1 cap Atorvastatin Calcium (Lipitor) 40 mg PO HS [facility] Last Admin: 07/17/18 20:35 Dose: 40 mg Famotidine (Pepcid) 20 mg PO BID [facility] Last Admin: 07/18/18 09:50 Dose: 20 mg Piperacillin Sod/Tazobactam (Sod 3.375 gm/ Sodium Chloride) 100 mls @ 200 mls/ hr IVPB 0200,0800,1400,2000 [facility] Last Admin: 07/18/18 15:17 Dose: 100 mls Vancomycin HCl 1 gm/ Device 200 mls @ 200 mls/hr IVPB 0300,1500 [facility] Last Admin: 07/18/18 15:17 Dose: 200 mls Metronidazole 500 mg/ Device 100 mls @ 100 mls/hr IVPB Q8HR [facility] Last Admin: 07/18/18 15:17 Dose: 100 mls Levetiracetam (Keppra Oral Solution) 500 mg PO BID [facility] [place] Last Admin: 07/18/18 09:50 Dose: 500 mg Lorazepam (Ativan) 1 mg PO Q4H PRN PRN Reason: Anxiety/Agitation Metoclopramide HCl (Reglan) 10 mg PO BID [facility] Last Admin: 07/18/18 09:50 Dose: 10 mg Miscellaneous Medication (Pharmacy To Dose) 1 each IVPB ONE PRN PRN Reason: Pharmacy to dose Stop: 07/27/18 13:32 Polyethylene Glycol (Miralax) 17 gm PER TUBE DAILY [facility] Last Admin: 07/18/18 09:50 Dose: 17 gm Sodium Bicarbonate (Bicarbonate, Sodium) 650 mg PER TUBE .PER PROTOCOL PRN PRN Reason: ENTERAL TUBE OCCLUSION Last Admin: 07/11/18 12:53 Dose: 650 mg Sodium Chloride (Flush - Normal Saline) 10 ml IVF Q12HR [facility] Last Admin: 07/18/18 09:51 Dose: 10 ml Sodium Chloride (Flush - Normal Saline) 10 ml IVF PRN PRN PRN Reason: Saline Flush
[2018-07-18] MEDS: Atorvastatin Calcium 40 MG TAB PO SCH (22:08)
[2018-07-19] MEDS: Piperacillin/Tazobactam 3.375 GM in Sodium Chloride 0.9% 100 ML IVPB SCH ×2 (01:52→09:04)
[2018-07-19 02:40] LABS: Vancomycin, Trough 4.5 ug/mL
[2018-07-19] MEDS: Vancomycin HCl 1.25 GM in Sodium Chloride 0.9% 250 ML 250 ML IVPB SCH ×2 (03:25→12:56)
[2018-07-19 04:55] LABS: #Basophils 0.1 thou/uL (0.0-0.2); #Eosinphils 1.1 thou/uL (0.0-0.7); #Lymphocytes 1.5 thou/uL (1.20-3.40); #Monocytes 1.4 thou/uL (0.11-0.59); #Neutrophils 13.5 thou/uL (1.40-6.50); %Basophils 0.3 % (0.0-1.0); %Eosinophils 6.2 % (0.0-10.0); %Lymphocytes 8.3 % (21.0-51.0); %Monocytes 8.2 % (0.0-10.0); %Neutrophils 77.1 % (42.0-75.0); Hemoglobin 10.2 g/dL (12.0-16.0); Mean Corpuscular HGB CONC 33.2 g/dL (32.0-36.0); Mean Corpuscular Hemoglobin 29.8 pg (27.0-31.0); Mean Corpuscular Volume 89.6 fL (78.0-98.0); Mean Platelet Volume 8.3 fL (7.4-10.4); Platelet Count 166 thou/uL (130-400); RBC Distribution Width 13.1 % (11.5-14.5); Red Blood Cell (RBC) Count 3.41 mill/uL (4.20-5.40); White Blood Cell (WBC) Count 17.5 thou/uL (4.8-10.8)
[2018-07-19 05:18] LABS: Anion Gap 15 mmol/L (10-20); BUN (Urea Nitrogen) 16 mg/dL (9.8-20.1); Calc. Creatinine Clearance 63 mL/min (70-130); Calcium 8.1 mg/dL (7.8-10.44); Carbon Dioxide 23 mmol/L (23-31); Chloride 104 mmol/L (98-107); Estimated GFR-MDRD 54; Glucose 86 mg/dL (80-115); Potassium 4.4 mmol/L (3.5-5.1); Sodium 138 mmol/L (136-145)
[2018-07-19] MEDS: metroNIDAZOLE 500 MG in Premix Bag 1 BAG IVPB SCH (05:45)
--- NOTE | 2018-07-19 09:04 | PRG ---
DATE OF SERVICE: 07/19/2018 This morning appears to be in no distress, appears to be at her baseline. PHYSICAL EXAMINATION: VITAL SIGNS: Sats 100% on room air, temperature 98, pulse 95, respiration 16, blood pressure 122/65, aphasic. CHEST: No wheezing or crackles. CARDIAC: Normal S1, S2. No gallops. ABDOMEN: Soft, no masses. LABORATORY: White count 17,000. Electrolytes are normal. IMPRESSION: 1. Status post cerebrovascular accident with left-sided weakness. 2. Encephalopathy. 3. No evidence of pneumonia. PLAN: I will deescalate the antibiotics, avoid giving the patient's C. diff. Otherwise, PT and supportive care. I will follow.
[2018-07-19] MEDS: Polyethylene Glycol 3350 17 GM Packet PER TUBE SCH (09:45)
[2018-07-19] MEDS: Metoclopramide HCl 10 MG TAB PO SCH ×2 (09:45→21:57)
[2018-07-19] MEDS: levETIRAcetam 500 mg/5 ml Oral Solution PO SCH ×2 (09:45→22:05)
[2018-07-19] MEDS: Famotidine 20 MG TAB PO SCH ×2 (09:48→21:57)
--- NOTE | 2018-07-19 18:44 | PDOC.PN ---
- Subjective Encounter Start Date: 07/19/18 Encounter Start Time: 12:00 -: non-verbal Pt seen for followup re: R MCA infarction. Pt is nonverbal, unable to complete ROS. - Objective Resuscitation Status: Resuscitation Status DNR:Do Not Resuscitate MAR Reviewed: Yes Vital Signs & Weight: Vital Signs (12 hours) Temp Pulse Resp BP Pulse Ox 07/19/18 16:02 100.6 F H 79 20 118/57 L 93 L 07/19/18 12:03 98.1 F 98 20 123/57 L 100 07/19/18 07:58 100 07/19/18 07:15 98.2 F 95 16 122/65 100 Weight Admit Weight 169 lb Weight 153 lb 9.6 oz Most Recent Monitor Data Heart Rate from ECG 95 NIBP 150/70 NIBP BP-Mean 91 Respiration from ECG 22 SpO2 99 I&O: 07/18/18 07/19/18 07/20/18 06:59 06:59 06:59 Intake Total 2327 1050 280 Balance 2327 1050 280 Result Diagrams: 07/19/18 03:36 07/19/18 03:36 Additional Labs: Accuchecks 07/19/18 07/18/18 05:38 22:37 POC Glucose 97 85 EKG Reviewed by me: Yes (Tele: NSR) Phys Exam - Physical Examination Constitutional: NAD HEENT: moist MMs Neck: supple Respiratory: clear to auscultation bilateral Cardiovascular: RRR Gastrointestinal: soft G-tube Psychiatric: normal affect Dx/Plan (1) Acute right MCA stroke Code(s): I63.511 - CEREB INFRC D/T UNSP OCCLS OR STENOS OF RIGHT MID CEREB ART Status: Acute Comment: s/p tPA and had [facility] procedure (2) ICH (intracerebral hemorrhage) Code(s): I61.9 - NONTRAUMATIC INTRACEREBRAL HEMORRHAGE, UNSPECIFIED Status: Acute Qualifiers: Intracerebral hemorrhage etiology: nontraumatic Laterality: right Comment: in right frontal lobe (3) Leukocytosis Code(s): D72.829 - ELEVATED WHITE BLOOD CELL COUNT, UNSPECIFIED Status: Acute Comment: etiology unclear, could be secondary to bleed (4) Dyslipidemia Code(s): E78.5 - HYPERLIPIDEMIA, UNSPECIFIED Status: Chronic Comment: continue Lipitor (5) Aspiration pneumonia Code(s): J69.0 - PNEUMONITIS DUE TO INHALATION OF FOOD AND VOMIT Status: Ruled -out Comment: No evidence of pneumonia, will deescalate antibiotics - Plan * . GI service being contacted re: small amount of leakage at G-tube site. Family updated by bedside. Review of Systems - Medications/Allergies Allergies/Adverse Reactions: Allergies Allergy/AdvReac Type Severity Reaction Status Date / Time Unable to Assess Allergy Verified 07/06/18 14:45 Medications: Current Medications Acetaminophen (Tylenol Elixir) 1,000 mg PER TUBE Q6H PRN PRN Reason: Headache/Fever or Pain Last Admin: 07/16/18 02:52 Dose: 1,000 mg Acetaminophen (Tylenol) 650 mg [place] Q6H PRN PRN Reason: Headache/Fever or Pain Last Admin: 07/18/18 09:51 Dose: 650 mg Lipase/Protease/Amylase ([place] [id number]) 1 cap FS .PER PROTOCOL PRN PRN Reason: TUBE OCCLUSION PROTOCOL Last Admin: 07/11/18 12:53 Dose: 1 cap Atorvastatin Calcium (Lipitor) 40 mg PO HS [facility] Last Admin: 07/18/18 22:08 Dose: 40 mg Cefdinir (Omnicef) 300 mg PER TUBE BID [facility] Famotidine (Pepcid) 20 mg PO BID [facility] Last Admin: 07/19/18 09:48 Dose: 20 mg Levetiracetam (Keppra Oral Solution) 500 mg PO BID [facility] Last Admin: 07/19/18 09:45 Dose: 500 mg Lorazepam (Ativan) 1 mg PO Q4H PRN PRN Reason: Anxiety/Agitation Metoclopramide HCl (Reglan) 10 mg PO BID [facility] Last Admin: 07/19/18 09:45 Dose: 10 mg Miscellaneous Medication (Pharmacy To Dose) 1 each IVPB ONE PRN PRN Reason: Pharmacy to dose Stop: 07/27/18 13:32 Polyethylene Glycol (Miralax) 17 gm PER TUBE DAILY [facility] Last Admin: 07/19/18 09:45 Dose: Not Given Sodium Bicarbonate (Bicarbonate, Sodium) 650 mg PER TUBE .PER PROTOCOL PRN PRN Reason: ENTERAL TUBE OCCLUSION Last Admin: 07/11/18 12:53 Dose: 650 mg Sodium Chloride (Flush - Normal Saline) 10 ml IVF Q12HR [facility] Last Admin: 07/19/18 09:45 Dose: 10 ml Sodium Chloride (Flush - Normal Saline) 10 ml IVF PRN PRN PRN Reason: Saline Flush Last Admin: 07/19/18 01:53 Dose: 10 ml
[2018-07-19] MEDS: Atorvastatin Calcium 40 MG TAB PO SCH (21:55)
[2018-07-19] MEDS: Cefdinir 125 MG/5 ML Oral Suspension PER TUBE SCH (22:34)
[2018-07-20 06:01] LABS: Anion Gap 14 mmol/L (10-20); BUN (Urea Nitrogen) 15 mg/dL (9.8-20.1); Calc. Creatinine Clearance 71 mL/min (70-130); Calcium 8.6 mg/dL (7.8-10.44); Carbon Dioxide 22 mmol/L (23-31); Chloride 105 mmol/L (98-107); Estimated GFR-MDRD 65; Glucose 120 mg/dL (80-115); Potassium 4.6 mmol/L (3.5-5.1); Sodium 136 mmol/L (136-145)
[2018-07-20 06:14] LABS: Band 14 % (5-11); Eosinophils 10 % (0-10); Hemoglobin 11.3 g/dL (12.0-16.0); Lymphocytes 14 % (21-51); MDiff Complete? YES; Mean Corpuscular HGB CONC 32.8 g/dL (32.0-36.0); Mean Corpuscular Hemoglobin 29.3 pg (27.0-31.0); Mean Corpuscular Volume 89.5 fL (78.0-98.0); Mean Platelet Volume 8.4 fL (7.4-10.4); Monocytes 12 % (0-10); Neutrophil 49 % (42-75); Platelet Count 194 thou/uL (130-400); Reactive Lymphocytes 1 % (0-10); Red Blood Cell (RBC) Count 3.84 mill/uL (4.20-5.40); White Blood Cell (WBC) Count 20.1 thou/uL (4.8-10.8)
--- NOTE | 2018-07-20 09:00 | PRG ---
DATE OF SERVICE: 07/20/2018 This morning she appears to be in no distress. PHYSICAL EXAMINATION: VITAL SIGNS: Sats are 90% on room air, respiration 20, temperature 98, pulse 95, blood pressure 155/ 82. CHEST: No wheezing or crackles. CARDIAC: Normal S1, S2. No gallops. . EXTREMITIES: Edema. NEURO: She is aphasic. LABORATORY: White count 20,000. All cultures that I have seen are negative. 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 PLAN: I agree with p.o. antibiotics. Pulmonary will follow at a distance. Please call as needed.
[2018-07-20] MEDS: levETIRAcetam 500 mg/5 ml Oral Solution PO SCH ×2 (09:14→21:27)
[2018-07-20] MEDS: Famotidine 20 MG TAB PO SCH ×2 (09:14→21:26)
[2018-07-20] MEDS: Cefdinir 125 MG/5 ML Oral Suspension PER TUBE SCH ×2 (09:14→21:26)
[2018-07-20] MEDS: Metoclopramide HCl 10 MG TAB PO SCH ×2 (10:26→21:27)
[2018-07-20] MEDS: Polyethylene Glycol 3350 17 GM Packet PER TUBE SCH (10:26)
[2018-07-20] MEDS ORDERED: Saccharomyces boulardii 250 MG CAP PO SCH (11:45)
[2018-07-20 12:47] VITALS: BMI 21.8
--- NOTE | 2018-07-20 16:53 | PDOC.PN ---
- Subjective Encounter Start Date: 07/20/18 Encounter Start Time: 07:20 Pt seen for followup re: R MCA CVA. Has loose stools. Pt is nonverbal, unable to complete ROS. - Objective Resuscitation Status: Resuscitation Status DNR:Do Not Resuscitate MAR Reviewed: Yes Vital Signs & Weight: Vital Signs (12 hours) Temp Pulse Pulse Pulse Resp BP BP 07/20/18 15:57 98.8 F 106 H 18 07/20/18 11:57 99.7 F H 95 16 07/20/18 10:10 133/66 140/70 07/20/18 10:06 98 88 140/70 133/66 07/20/18 08:00 98.4 F 106 H 16 07/20/18 07:15 BP Pulse Ox 07/20/18 15:57 159/89 H 95 07/20/18 11:57 133/68 96 07/20/18 10:10 07/20/18 10:06 07/20/18 08:00 138/68 95 07/20/18 07:15 95 Weight Admit Weight 169 lb Weight 143 lb 9 oz Most Recent Monitor Data Heart Rate from ECG 95 NIBP 150/70 NIBP BP-Mean 91 Respiration from ECG 22 SpO2 99 I&O: 07/19/18 07/20/18 07/21/18 06:59 06:59 06:59 Intake Total 1969 2129 Balance 1969 2129 Result Diagrams: 07/20/18 05:03 07/20/18 05:03 Additional Labs: Accuchecks 07/20/18 12:41 POC Glucose 105 EKG Reviewed by me: Yes (Tele: NSR) Phys Exam - Physical Examination Constitutional: NAD HEENT: moist MMs Neck: supple Respiratory: clear to auscultation bilateral Cardiovascular: RRR Gastrointestinal: soft G-tube Neurological: moves all 4 limbs Deviation from normal: Unable to assess Dx/Plan (1) Acute right MCA stroke Code(s): I63.511 - CEREB INFRC D/T UNSP OCCLS OR STENOS OF RIGHT MID CEREB ART Status: Acute Comment: s/p tPA and [facility] procedure, currently on stroke floor (2) Diarrhea Code(s): R19.7 - DIARRHEA, UNSPECIFIED Status: Acute Comment: check stool c. diff, start Florastor (3) ICH (intracerebral hemorrhage) Code(s): I61.9 - NONTRAUMATIC INTRACEREBRAL HEMORRHAGE, UNSPECIFIED Status: Acute Qualifiers: Intracerebral hemorrhage etiology: nontraumatic Laterality: right Comment: right frontal lobe hemorrhage (4) Leukocytosis Code(s): D72.829 - ELEVATED WHITE BLOOD CELL COUNT, UNSPECIFIED Status: Acute Comment: etiology unclear, could be secondary to bleed. Continue omnicef for now. (5) Dyslipidemia Code(s): E78.5 - HYPERLIPIDEMIA, UNSPECIFIED Status: Chronic Comment: on Lipitor (6) Aspiration pneumonia Code(s): J69.0 - PNEUMONITIS DUE TO INHALATION OF FOOD AND VOMIT Status: Ruled -out - Plan * . Review of Systems - Medications/Allergies Allergies/Adverse Reactions: Allergies Allergy/AdvReac Type Severity Reaction Status Date / Time Unable to Assess Allergy Verified 07/06/18 14:45 Medications: Current Medications Acetaminophen (Tylenol Elixir) 1,000 mg PER TUBE Q6H PRN PRN Reason: Headache/Fever or Pain Last Admin: 07/16/18 02:52 Dose: 1,000 mg Acetaminophen (Tylenol) 650 mg WA Q6H PRN PRN Reason: Headache/Fever or Pain Last Admin: 07/18/18 09:51 Dose: 650 mg Lipase/Protease/[place]ylase ([place] [id number]) 1 cap FS .PER PROTOCOL PRN PRN Reason: TUBE OCCLUSION PROTOCOL Last Admin: 07/11/18 12:53 Dose: 1 cap Atorvastatin Calcium (Lipitor) 40 mg PO HS [facility] Last Admin: 07/19/18 21:55 Dose: 40 mg Cefdinir (Omnicef) 300 mg PER TUBE BID [facility] Last Admin: 07/20/18 09:14 Dose: 300 mg Famotidine (Pepcid) 20 mg PO BID [facility] Last Admin: 07/20/18 09:14 Dose: 20 mg Levetiracetam (Keppra Oral Solution) 500 mg PO BID [facility] Last Admin: 07/20/18 09:14 Dose: 500 mg Lorazepam (Ativan) 1 mg PO Q4H PRN PRN Reason: Anxiety/Agitation Metoclopramide HCl (Reglan) 10 mg PO BID [facility] Last Admin: 07/20/18 10:26 Dose: Not Given Miscellaneous Medication (Pharmacy To Dose) 1 each IVPB ONE PRN PRN Reason: Pharmacy to dose Stop: 07/27/18 13:32 Polyethylene Glycol (Miralax) 17 gm PER TUBE DAILY [facility] Last Admin: 07/20/18 10:26 Dose: Not Given Saccharomyces Boulardii (Florastor) 250 mg PO DAILY [facility] Sodium Bicarbonate (Bicarbonate, Sodium) 650 mg PER TUBE .PER PROTOCOL PRN PRN Reason: ENTERAL TUBE OCCLUSION Last Admin: 07/11/18 12:53 Dose: 650 mg Sodium Chloride (Flush - Normal Saline) 10 ml IVF Q12HR [facility] Last Admin: 07/19/18 21:58 Dose: 10 ml Sodium Chloride (Flush - Normal Saline) 10 ml IVF PRN PRN PRN Reason: Saline Flush Last Admin: 07/19/18 01:53 Dose: 10 ml
--- NOTE | 2018-07-20 20:00 | PRG ---
DATE OF SERVICE: 07/20/2018 SUBJECTIVE: This is a 67-year-old female with acute cerebrovascular accident, aphasia. Th e patient was seen by me a week ago for PEG tube placement. She underwent a PEG tube placement and w as doing very well. The patient was in IMCU for 5 days and was transferred back to the stroke unit. The patient is tolerating tube feeding, but the patient has also noted that she has some leakage fro m the G-tube and also there is some pus, purulent discharge. The patient was on IV antibiotics befor e. Now, she is on p.o. antibiotics, cefdinir 300 mg twice a day through the PEG tube. The patient h as been having diarrhea. The patient has had no stool studies done. Basically, I last saw the patie nt because of leakage of the PEG tube site and possibly purulent discharge. PHYSICAL EXAMINATION: GENERAL: She is noncommunicative, nonverbal. She is awake, but does not respond to any questions. VITAL SIGNS: Temperature is 99.7 degrees Fahrenheit, pulse is 95, blood pressure is 140/70. CARDIOVASCULAR SYSTEM: Within normal limits. LUNGS: Within normal limits. ABDOMEN: The G-tube site appears healthy. The G-tube bumper is very loose and is slightly across th e abdomen. I actually saw the patient during the time of feeding. During the time of feeding, I do not see any leakage around the G-tube site. Also, I palpated around the abdominal area and I do not see any induration or any swelling there. There is mild erythema around the G-tube site around the o pening. Otherwise, the exam is benign. RECOMMENDATION: 1. I reset the G-tube bumper and abdominal wall. 2. Continue tube feeding and we will reevaluate the patient back again tomorrow.
[2018-07-20] MEDS: Atorvastatin Calcium 40 MG TAB PO SCH (21:26)
[2018-07-21] MEDS ORDERED: diphenhydrAMINE 50 MG/ML VIAL IVP SCH ×2 (02:30→10:15)
[2018-07-21 06:30] LABS: Anion Gap 12 mmol/L (10-20); BUN (Urea Nitrogen) 13 mg/dL (9.8-20.1); Calc. Creatinine Clearance 61 mL/min (70-130); Carbon Dioxide 27 mmol/L (23-31); Chloride 101 mmol/L (98-107); Estimated GFR-MDRD 59; Glucose 152 mg/dL (80-115); Potassium 4.9 mmol/L (3.5-5.1); Sodium 135 mmol/L (136-145)
[2018-07-21 07:16] LABS: Band 42 % (5-11); Eosinophils 7 % (0-10); Hemoglobin 11.5 g/dL (12.0-16.0); Lymphocytes 9 % (21-51); MDiff Complete? YES; Mean Corpuscular HGB CONC 32.1 g/dL (32.0-36.0); Mean Corpuscular Hemoglobin 28.7 pg (27.0-31.0); Mean Corpuscular Volume 89.2 fL (78.0-98.0); Mean Platelet Volume 7.8 fL (7.4-10.4); Metamyelocyte 1 % (0-0); Monocytes 3 % (0-10); Myelocyte 1 % (0-0); Neutrophil 37 % (42-75); Platelet Count 234 thou/uL (130-400); RBC Morphology Normal; Red Blood Cell (RBC) Count 4.01 mill/uL (4.20-5.40); White Blood Cell (WBC) Count 19.7 thou/uL (4.8-10.8)
[2018-07-21] MEDS ORDERED: Saccharomyces boulardii 250 MG CAP PO SCH (09:00)
[2018-07-21] MEDS: Cefdinir 125 MG/5 ML Oral Suspension PER TUBE SCH (09:14)
[2018-07-21] MEDS: Famotidine 20 MG TAB PO SCH (09:14)
[2018-07-21] MEDS: levETIRAcetam 500 mg/5 ml Oral Solution PO SCH (09:15)
[2018-07-21] MEDS: Metoclopramide HCl 10 MG TAB PO SCH (09:15)
[2018-07-21] MEDS: Polyethylene Glycol 3350 17 GM Packet PER TUBE SCH (09:15)
[2018-07-21] MEDS ORDERED: diphenhydrAMINE 12.5 MG/5 ML UDCUP PER TUBE PRN (10:10)
[2018-07-21 11:41] VITALS: BP 152/75; TEMP 98.7
--- NOTE | 2018-07-21 13:27 | DIS ---
DATE OF ADMISSION: 07/06/2018 DATE OF DISCHARGE: 07/21/2018 PRIMARY CARE PHYSICIAN: Manjit Camacho M.D. DISCHARGE DIAGNOSES: 1. Right middle cerebral artery stroke. 2. Right middle cerebral artery division thrombus. 3. Intracranial bleed. 4. Aspiration pneumonia. 5. Gastric ulcers. CONDITION OF PATIENT ON THE DAY OF DISCHARGE: I assessed Ms. Kat on the day of discharge. She is nonverbal, unable to provide any history. Vital signs are stable. She is afebrile. S1 and S2 are h eard, regular. Lungs are clear to auscultation bilaterally. DISCHARGE MEDICATIONS: Lipitor 40 mg at bedtime, Omnicef 300 mg twice daily for 7 more days, Benadry l 25 mg q.8 hours p.r.n., Pepcid 20 mg 2 times a day, Keppra 500 mg 2 times a day, Reglan 10 mg 2 ivonne es a day, Florastor 250 mg daily for 7 more days, Protonix 40 mg per tube daily. CONSULTATIONS DURING THIS HOSPITALIZATION: Interventional Neurology, Dr. Reeves; Pulmonology, Dr. Kasandra engel; Neurology, Dr. Roxanne Parker and Gastroenterology, Dr. Story. HOSPITAL COURSE: Ms. Kat is a pleasant 67-year-old lady who was admitted to [facility] on 07/16/2018 by Interventional Neurology Service for right MCA stroke. She received TPA and underwent successful mechanical thrombectomy of right MCA division thrombus. Following the proc edure, she developed parenchymal hemorrhage in the right anterior frontal lobe with adjacent subarach noid hemorrhage. She was intubated and admitted to CCU. She was treated with intravenous antibiotic s for presumed aspiration pneumonia. She was also started on Keppra for seizure prophylaxis. She wa s extubated on 07/07/2018. She was aphasic and not eating well. Dobbhoff tube feed was attempted, b ut she pulled off Dobbhoff tube. She was seen by GI and underwent EGD and PEG tube placement. She w as found to have nonbleeding gastric ulcer. She had noncontrast CT scan of the brain on 07/13/2018 which showed increase in size of the right fro ntal hemorrhage as well as additional areas of infarction bilaterally. She was also found to have a probable small bleed in the right temporal lobe. She was transferred to IMCU unit on 07/18/2018 for suspected aspiration following code green. She re ceived antibiotics and improved and was transferred back to the stroke floor. She had diarrhea towar ds the end of the hospitalization, but stool C. diff samples are negative. She continued to be stable on the stroke floor. She was evaluated by Therapy Services during this hospitalization. She is being discharged to [facility] for long-term. LABORATORY DATA: On the day of discharge, she has white count 19,700, hemoglobin 11.5 and platelet c ount 234,000. Sodium 135, potassium 4.9, creatinine 0.95, and calcium 9.0. During this hospitalizat ion, she had triglycerides 93, cholesterol 159, LDL cholesterol 100, and HDL cholesterol 40. Many thanks for allowing me to participate in this patient's care. Please feel free to contact me wi th any questions or concerns. DISCHARGE DESTINATION: [facility]. TOTAL AMOUNT OF TIME SPENT COORDINATING THIS DISCHARGE: 40 minutes.
--- NOTE | 2018-07-24 14:28 | EKG ---
Test Reason : CODE GREEN Blood Pressure : / mmHG Vent. Rate : 151 BPM Atrial Rate : 151 BPM P-R Int : 130 ms QRS Dur : 064 ms QT Int : 266 ms P-R-T Axes : 055 040 064 degrees QTc Int : 421 ms Sinus tachycardia Nonspecific ST abnormality Abnormal ECG When compared with ECG of 06-JUL-2018 13:06, Vent. rate has increased BY 59 BPM Questionable change in QRS duration Confirmed by GRACE MCDERMOTT (2) on 07/24/2018 2:27:44 PM Referred By: KAMI Confirmed By:GRACE MCDERMOTT
== END 2018-07-21 15:20 | disposition home or self-care (01) | DRG 23 ==
LOC: ERS 12:21 → CCL 13:44 → CCU 14:06 → 2SE 07-10 17:23 → IMCU/EMU 07-18 11:54 → 2SE 07-19 15:45
PROVIDERS: ADMIT Neurological Surgery; ATTEND Internal Medicine
PROC: 03CG0ZZ Extirpation of Matter from Intracranial Artery, Open Approach (ICD-10-PCS; principal; 2018-07-06)
PROC: 5A1935Z Respiratory Ventilation, Less than 24 Consecutive Hours (ICD-10-PCS; 2018-07-06)
PROC: 0BH17EZ Insertion of Endotracheal Airway into Trachea, Via Natural or Artificial Opening (ICD-10-PCS; 2018-07-06)
PROC: 3E03317 Introduction of Other Thrombolytic into Peripheral Vein, Percutaneous Approach (ICD-10-PCS; 2018-07-06)
PROC: 0DH63UZ Insertion of Feeding Device into Stomach, Percutaneous Approach (ICD-10-PCS; 2018-07-12)
PROC: 0DJ08ZZ Inspection of Upper Intestinal Tract, Via Natural or Artificial Opening Endoscopic (ICD-10-PCS; 2018-07-12)
DX: I63.9 Cerebral infarction, unspecified (principal); J69.0 Pneumonitis due to inhalation of food and vomit; J96.01 Acute respiratory failure with hypoxia; I61.9 Nontraumatic intracerebral hemorrhage, unspecified; G93.40 Encephalopathy, unspecified; G81.94 Hemiplegia, unspecified affecting left nondominant side; E87.2 Acidosis; K25.3 Acute gastric ulcer without hemorrhage or perforation; R47.01 Aphasia; F41.9 Anxiety disorder, unspecified; Z66 Do not resuscitate
CPT/HCPCS: 36415; 36416; 37184; 70450; 70496; 70498; 71045; 74018; 80048; 80053; 80061; 80202; 81001; 82805; 85025; 85610; 85730; 87040; 87086; 87324; 87449; 93005; 93010; 93970; 94002; 94003; 96365; A4216; C1757; C1887; G8978-GP-CM; G8978-GP-CN; G8979-GP-CK; G8987-GO-CN; G8988-GO-CJ; G8988-GO-CK; G8996-GN-CL; G8996-GN-CM; G8997-GN-CK; G8997-GN-CL; J0131; J0692; J1200; J1644; J1953; J2001; J2060; J2543; J2704; J2920; J2997; J3010; J3370; J7050; S0028